=== PATIENT | male | born 1950 | race Caucasian/White ===

== ENCOUNTER → 2016-08-30 | Outpatient (CLI) | payer OTHER, MEDICARE ==
[~2016-08-30] MED LIST: ASPI81TA28 PO; ATOR10TA88 PO; FLM4 PO; LSN/10125 PO; MULT-506 PO
[2016-08-30 12:46] LABS: CHOLESTEROL/HDL RATIO 4.8
== END | disposition home or self-care (01) ==
LOC: C.LAB1850 10:15
PROVIDERS: ATTEND Internal Medicine
DX: E78.00 Pure hypercholesterolemia, unspecified (principal)

== ENCOUNTER → 2016-12-03 | Outpatient (CLI) | payer OTHER, MEDICARE ==
[~2016-12-03] MED LIST changes: +ATOR10TA82 PO; -ATOR10TA88 PO
[2016-12-03 09:48] LABS: CHOLESTEROL/HDL RATIO 3.8
== END | disposition home or self-care (01) ==
LOC: C.LAB1850 08:25
PROVIDERS: ATTEND Internal Medicine
DX: E78.00 Pure hypercholesterolemia, unspecified (principal)

== ENCOUNTER → 2017-07-25 | Outpatient (CLI) | payer OTHER, MEDICARE ==
[~2017-07-25] VITALS: Ht 175.3 cm; Wt 105.0 kg
[2017-07-25 14:27] VITALS: BP 134/80; PULSE 69; Ht 175.3 cm; Wt 105.0 kg
== END | disposition home or self-care (01) ==
LOC: C.NEUR 14:05
PROVIDERS: ATTEND Physician Assistant
DX: G47.33 Obstructive sleep apnea (adult) (pediatric) (principal)

== ENCOUNTER → 2017-10-16 | Outpatient (CLI) | payer OTHER, MEDICARE ==
--- NOTE | 2017-10-16 15:26 | DIAGNOSTIC IMAGING REPORT ---
CHEST 2 VIEWS ROUTINE CLINICAL HISTORY: 67 years-old Male presenting with R06.09 Dyspnea on [id number]. TECHNIQUE: PA and lateral views of the chest were obtained. COMPARISON: None. FINDINGS: Cardiomediastinal silhouette normal. Lungs and pleural spaces clear. Degenerative changes of the thoracic spine. Cholecystectomy clips noted. Radiodensity in the left axilla, possibly ballistic material. IMPRESSION: 1. No acute cardiopulmonary disease. Electronically signed by: Jesus Guerrero M.D. 10/16/2017 3:24 PM Dictated Date/Time: 10/16/2017 3:23 PM
== END | disposition home or self-care (01) ==
LOC: C.RAD1850 15:09
PROVIDERS: ATTEND Internal Medicine
DX: R06.09 Other forms of dyspnea (principal)

== ENCOUNTER → 2017-12-10 | Outpatient (CLI) | payer OTHER, MEDICARE ==
[2017-12-10 10:16] LABS: BLOOD UREA NITROGEN 13 mg/dl (7-18); CALCIUM 8.6 mg/dl (8.5-10.1); CARBON DIOXIDE 32 mmol/L (21-32); CREATININE 1.06 mg/dl (0.60-1.40); GLUCOSE 101 mg/dl (70-99); POTASSIUM 3.8 mmol/L (3.5-5.1); SODIUM 140 mmol/L (136-145)
[2017-12-10 10:19] LABS: ALT/SGPT 25 U/L (12-78); AST/SGOT 17 U/L (15-37); CHOLESTEROL 190 mg/dl (0-200); LDL CHOLESTEROL CALCULATED 95 mg/dl
== END | disposition home or self-care (01) ==
LOC: C.LAB1850 07:30
PROVIDERS: ATTEND Internal Medicine
DX: E78.00 Pure hypercholesterolemia, unspecified (principal); R73.9 Hyperglycemia, unspecified

== ENCOUNTER 2019-11-02 13:09 | Inpatient (IN) ==
[2019-11-02] MEDS ORDERED: PIPERACILLIN/TAZOBACTAM 4.5 GM/120 ML BAG IV ONE (13:32)
[2019-11-02] MEDS ORDERED: PIPERACILL/TAZOBAC CONSULT ACTIVE PRN (13:32)
[2019-11-02] MEDS ORDERED: SODIUM CHLORIDE 0.9% 1000ML 1,000 ML IV ONE (13:32)
--- NOTE | 2019-11-02 13:35 | Emergency Department Note ---
ED Provider Note NAME: ANNA PUENTE AGE: 69 SEX: M : 1950 ARRIVES VIA: Walk-In INFORMANT: [Patient] ED PROVIDER(S): [Scotty Agarwal MD] CHIEF COMPLAINT: Fever HISTORY OF PRESENT ILLNESS: The patient is a 69-year-old male who presents to the ER with complaints of fever, aches. The patient believes he has had flu/cold-like symptoms for about 2 weeks now. He was initially seen in this ED on the , 6 days ago. Work-up did not show any obvious source for infection. He was placed on Cipro and Flagyl for possible diverticulitis. He has taken this medication but it has made no improvement. He continues to have night sweats, a little bit of a cough, headache, fevers. He feels body aches and fatigue. No vomiting, no diar lori. The patient has not had recent travel. There have been no sick contacts except for a nephew who had some sort of cold recently. The patient went to his doctor's office today, he did have coronavirus testing sent off, the result is pending. He was ordered for laboratory work and then called and told to report to the ER as his white blood cell count had risen to around 24,000. The white count had been 18,000 just 6 days ago. Patient has not noticed any rash, there has been no recent dental cleaning. He has no urinary complaints. REVIEW OF SYSTEMS: See HPI for pertinent positives and negatives. A total of ten systems were reviewed and were otherwise negative. PMHx/PSHx: See Below SOCIAL HISTORY: See Below. PHYSICAL EXAM: GENERAL: Patient is in no acute distress. HEENT: No acute trauma, normocephalic atraumatic, mucous membranes moist, no nasal congestion, no scleral icterus. No throat erythema or exudate. NECK: No stridor, no adenopathy, no meningismus, trachea is midline. LUNGS: Clear to auscultation bilaterally, no wheeze, no rhonchi, breath sounds equal. HEART: Without murmurs gallops or rubs, mildly tachycardic, regular rhythm. ABDOMEN: Soft, nontender, bowel sounds positive, no hernias, no peritonitis. EXTREMITIES: No cyanosis or edema, full range of motion of all the joints without pain or difficulty, no signs for acute trauma. NEUROLOGIC: Oriented x 3, no acute motor or sensory deficits, no focal weakness. SKIN: No rash, no jaundice, no diaphoresis. DIFFERENTIAL DIAGNOSIS: Viral syndrome, otitis, pharyngitis, pneumonia, influenza, meningitis, urinary tract infection, sepsis, bacteremia, as well as other pathologies. EMERGENCY DEPARTMENT COURSE/PROCEDURES: ECG: There is a normal sinus rhythm with a rate of 91, no PVCs, no ST elevation, QTc is 445. Continuous Cardiac Monitoring: An order was placed for continuous cardiac monitoring. The monitor shows a rate of 92 with normal sinus rhythm. MEDICAL DECISION MAKING: There is a significant leukocytosis at 23,000, hemoglobin somewhat low at 12. Platelet count elevated at 547. There was a slight elevation to the INR at 1.3. No kidney failure, no significant electrolyte abnormality requiring correction. Lactic acid level was not elevated making sepsis less likely. Sed rate and CRP were both quite high. No liver enzyme elevation. Urinalysis did not show infection. Influenza testing was negative. Chest from did not show pneumonia or CHF. On exam, the patient had no abdominal discomfort. He was not toxic or febrile. No source for infection based on his exam. Patient received IV saline for hydration. He was given IV Zosyn as antibiotic coverage. The cause for the patient's fever and flulike symptoms is unclear. He does not meet criteria that would be concerning for coronavirus infection. Certainly, endocarditis is a consideration especially with the high sed rate and CRP. I do think a stay in the hospital is warranted. I did speak with case management, I talked to the patient about all his findings. The on-call hospitalist has been consulted. Impression & Plan Leukocytosis, Fever, Body aches, Night sweats Past Med/Surg History Medical History Enlarged prostate without lower urinary tract symptoms (luts) (Acute) GERD (gastroesophageal reflux disease) (Acute) Hypercholesterolemia (Acute) Hypertension (Acute) Obstructive sleep apnea (Acute) CPAP Osteoarthritis Surgical History Cornea transplant recipient RT/LEFT History of appendectomy History of arthroscopy LEFT KNEE History of cataract surgery RT/LEFT History of cholecystectomy History of colonoscopy History of prostate surgery TUNA PROCEDURE History of tooth extraction Hx of hemorrhoidectomy Family History Mother Myocardial infarction Grandfather (Maternal) Myocardial infarction Grandmother (Maternal) Diabetes Other Family history of ischemic heart disease before age 50 Denies family history of Colon cancer Ovarian cancer Prostate cancer Breast cancer Social History Preferred Language: [place] Communication Ability: Effective Visual Impairment: No Limitations Hearing Ability: Normal 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 Required: No Beliefs That Will Affect Care: None marital status: Current Living Situation: Spouse current occupational status: retired Other Information That Helps Us Care for You: No Feels Safe at Home: Yes Safety Concerns: Feels Safe At This Time Smoking Status: Former smoker Do You Dip or Chew Tobacco: No ; Smoking End Date: 1979 ; Second Hand Exposure: No ; Tobacco Cessation Education Requested by Patient: No Hx Alcohol Use: Yes Alcohol type: beer Alcohol Intake Frequency: Rarely Hx Substance Use: No Dental Care, Regularly: Yes Physical Activity Frequency: 1-2 Times per Week Seatbelt Use: always Sunscreen Use: No Results & Data Vital Signs Vital Signs - 24 hr 11/02/19 13:12 11/02/19 14:00 11/02/19 15:20 Temperature 36.7 C Temperature Source Oral Pulse Rate 113 H 86 Pulse Rate [Right Finger] 95 H 91 H Pulse Rhythm Regular Pulse Strength Normal Respiratory Rate 18 20 18 Respiratory Effort / Characteristics Non-Labored Spontaneous Non-Labored Non-Labored Respiratory Depth Normal Normal Normal Blood Pressure 135/82 Blood Pressure [Left Arm] 147/84 H 131/81 Blood Pressure Mean 99 Blood Pressure Mean [Left Arm] 105 97 Blood Pressure Position Sitting Pulse Oximetry 96 98 97 Oxygen Delivery Method Room Air Room Air Room Air Sepsis Recent Fever Within 48 Hours Yes Sepsis Action Taken by Nursing No Action Required 11/02/19 17:01 11/02/19 18:14 Temperature 37 C 36.9 C Temperature Source Oral Oral Pulse Rate 94 H Pulse Rate [Right Finger] 86 Pulse Rhythm Pulse Strength Respiratory Rate 18 16 Respiratory Effort / Characteristics Respiratory Depth Blood Pressure 141/99 H Blood Pressure [Left Arm] 132/71 Blood Pressure Mean Blood Pressure Mean [Left Arm] 91 Blood Pressure Position Pulse Oximetry 99 99 Oxygen Delivery Method Room Air Room Air Sepsis Recent Fever Within 48 Hours Sepsis Action Taken by [facility] Medications Current Medication List: was personally reviewed by me Laboratory Data Attestation: I reviewed the patient's lab results. Result diagrams: 11/02/19 13:51 11/02/19 13:51 Lab Results 11/02/19 11/02/19 11/02/19 Range/Units 13:51 13:51 13:51 WBC 23.56 H (4.8-10.8) K/uL RBC 4.38 L (4.7-6.1) M/uL Hgb 12.1 L (14.0-18.0) g/dL Hct 36.7 L (42-52) % MCV 83.8 (80-100) fL MCH 27.6 (25-34) pg MCHC 33.0 (32-36) g/dL RDW Std Deviation 45.4 (36.4-46.3) fL RDW Coeff of [place] 14.7 H (11.5-14.5) % Plt Count 547 H (130-400) K/uL MPV 8.9 (7.4-10.4) fL Immature Gran % (Auto) 3.1 % Neut % (Auto) 78.4 % Lymph % (Auto) 7.9 % [place] % (Auto) 8.4 % Eos % (Auto) 2.0 % Baso % (Auto) 0.2 % Immature Gran # (Auto) 0.73 H (0.00-0.02) K/uL Neut # (Auto) 18.44 H (1.4-6.5) K/uL Lymph # (Auto) 1.87 (1.2-3.4) K/uL [place] # (Auto) 1.99 H (0.11-0.59) K/uL Eos # (Auto) 0.48 (0-0.5) K/uL Baso # (Auto) 0.05 (0-0.2) K/uL ESR > 90 H (0-14) mm/hr PT 13.9 H (9.0-12.0) Seconds INR 1.3 H (0.9-1.1) APTT 30.9 (21.0-31.0) Seconds PTT Ratio 1.1 Sodium (136-145) mmol/L Potassium (3.5-5.1) mmol/L Chloride (98-107) mmol/L Carbon Dioxide (21-32) mmol/L Anion Gap (3-11) BUN (7-18) mg/dl Creatinine (0.6-1.4) mg/dl Est Cr Clr Drug Dosing ml/min Est GFR ( Amer) Est GFR (Non-Af Amer) BUN/Creatinine Ratio (10-20) Glucose (70-99) mg/dl Lactate (0.4-2.0) mmol/L Calcium (8.5-10.1) mg/dl Magnesium (1.8-2.4) mg/dl Total Bilirubin (0.2-1) mg/dl AST (15-37) U/L ALT (12-78) U/L Alkaline Phosphatase (45-117) U/L C-Reactive Protein (0-0.29) mg/dl Total Protein (6.4-8.2) gm/dl Albumin (3.4-5.0) gm/dl Globulin (2.5-4.0) gm/dl Albumin/Globulin Ratio (0.9-2) Procalcitonin (0-0.5) ng/ml Urine Color Urine Appearance (Clear) Urine pH (4.5-7.5) Ur Specific [place] (1.000-1.030) Urine Protein (Negative) Urine Glucose (UA) (Negative) Urine Ketones (Negative) Urine Blood (Negative) Urine Nitrite (Negative) Urine Bilirubin (Negative) Urine Urobilinogen (Negative) Ur Leukocyte Esterase (Negative) Hepatitis C Ab Screen (Neg) Influenza Type A (PCR) (Neg) Influenza Type B (PCR) (Neg) 11/02/19 11/02/19 11/02/19 Range/Units 13:51 13:51 13:51 WBC (4.8-10.8) K/uL RBC (4.7-6.1) M/uL Hgb (14.0-18.0) g/dL Hct (42-52) % MCV (80-100) fL MCH (25-34) pg MCHC (32-36) g/dL RDW Std Deviation (36.4-46.3) fL RDW Coeff of [place] (11.5-14.5) % Plt Count (130-400) K/uL MPV (7.4-10.4) fL Immature Gran % (Auto) % Neut % (Auto) % Lymph % (Auto) % [place] % (Auto) % Eos % (Auto) % Baso % (Auto) % Immature Gran # (Auto) (0.00-0.02) K/uL Neut # (Auto) (1.4-6.5) K/uL Lymph # (Auto) (1.2-3.4) K/uL [place] # (Auto) (0.11-0.59) K/uL Eos # (Auto) (0-0.5) K/uL Baso # (Auto) (0-0.2) K/uL ESR (0-14) mm/hr PT (9.0-12.0) Seconds INR (0.9-1.1) APTT (21.0-31.0) Seconds PTT Ratio Sodium 137 (136-145) mmol/L Potassium 3.2 L (3.5-5.1) mmol/L Chloride 102 (98-107) mmol/L Carbon Dioxide 27 (21-32) mmol/L Anion Gap 8.0 (3-11) BUN 12 (7-18) mg/dl Creatinine 0.87 (0.6-1.4) mg/dl Est Cr Clr Drug Dosing 93.8 ml/min Est GFR ( Amer) 102.8 Est GFR (Non-Af Amer) 88.7 BUN/Creatinine Ratio 13.5 (10-20) Glucose 112 H (70-99) mg/dl Lactate 1.8 (0.4-2.0) mmol/L Calcium 8.5 (8.5-10.1) mg/dl Magnesium 2.1 (1.8-2.4) mg/dl Total Bilirubin 0.3 (0.2-1) mg/dl AST 24 (15-37) U/L ALT 39 (12-78) U/L Alkaline Phosphatase 105 (45-117) U/L C-Reactive Protein 17.80 H (0-0.29) mg/dl Total Protein 7.4 (6.4-8.2) gm/dl Albumin 2.1 L (3.4-5.0) gm/dl Globulin 5.3 H (2.5-4.0) gm/dl Albumin/Globulin Ratio 0.4 L (0.9-2) Procalcitonin 0.15 (0-0.5) ng/ml Urine Color Urine Appearance (Clear) Urine pH (4.5-7.5) Ur Specific [place] (1.000-1.030) Urine Protein (Negative) Urine Glucose (UA) (Negative) Urine Ketones (Negative) Urine Blood (Negative) Urine Nitrite (Negative) Urine Bilirubin (Negative) Urine Urobilinogen (Negative) Ur Leukocyte Esterase (Negative) Hepatitis C Ab Screen (Neg) Influenza Type A (PCR) (Neg) Influenza Type B (PCR) (Neg) 11/02/19 11/02/19 11/02/19 Range/Units 13:51 14:00 15:43 WBC (4.8-10.8) K/uL RBC (4.7-6.1) M/uL Hgb (14.0-18.0) g/dL Hct (42-52) % MCV (80-100) fL MCH (25-34) pg MCHC (32-36) g/dL RDW Std Deviation (36.4-46.3) fL RDW Coeff of [place] (11.5-14.5) % Plt Count (130-400) K/uL MPV (7.4-10.4) fL Immature Gran % (Auto) % Neut % (Auto) % Lymph % (Auto) % [place] % (Auto) % Eos % (Auto) % Baso % (Auto) % Immature Gran # (Auto) (0.00-0.02) K/uL Neut # (Auto) (1.4-6.5) K/uL Lymph # (Auto) (1.2-3.4) K/uL [place] # (Auto) (0.11-0.59) K/uL Eos # (Auto) (0-0.5) K/uL Baso # (Auto) (0-0.2) K/uL ESR (0-14) mm/hr PT (9.0-12.0) Seconds INR (0.9-1.1) APTT (21.0-31.0) Seconds PTT Ratio Sodium (136-145) mmol/L Potassium (3.5-5.1) mmol/L Chloride (98-107) mmol/L Carbon Dioxide (21-32) mmol/L Anion Gap (3-11) BUN (7-18) mg/dl Creatinine (0.6-1.4) mg/dl Est Cr Clr Drug Dosing ml/min Est GFR ( Amer) Est GFR (Non-Af Amer) BUN/Creatinine Ratio (10-20) Glucose (70-99) mg/dl Lactate (0.4-2.0) mmol/L Calcium (8.5-10.1) mg/dl Magnesium (1.8-2.4) mg/dl Total Bilirubin (0.2-1) mg/dl AST (15-37) U/L ALT (12-78) U/L Alkaline Phosphatase (45-117) U/L C-Reactive Protein (0-0.29) mg/dl Total Protein (6.4-8.2) gm/dl Albumin (3.4-5.0) gm/dl Globulin (2.5-4.0) gm/dl Albumin/Globulin Ratio (0.9-2) Procalcitonin (0-0.5) ng/ml Urine Color Yellow Urine Appearance Clear (Clear) Urine pH 6.5 (4.5-7.5) Ur Specific [place] 1.010 (1.000-1.030) Urine Protein Negative (Negative) Urine Glucose (UA) Negative (Negative) Urine Ketones Negative (Negative) Urine Blood Negative (Negative) Urine Nitrite Negative (Negative) Urine Bilirubin Negative (Negative) Urine Urobilinogen Negative (Negative) Ur Leukocyte Esterase Negative (Negative) Hepatitis C Ab Screen Neg (Neg) Influenza Type A (PCR) Neg for Influ A (Neg) Influenza Type B (PCR) Neg for Influ B (Neg) Administered Medications Discontinued Medications Sodium Chloride (Nss 1000ml) 1,000 mls @ 999 mls/hr IV .[id number] ONE Stop: 11/02/19 14:32 Last Infusion: 11/02/19 15:19 Dose: 0 mls/hr Documented by: [id number] Admin: 11/02/19 14:07 Dose: 999 mls/hr Documented by: [id number] Piperacillin Sod/Tazobactam Sod (Zosyn) 4.5 gm in 120 mls @ 240 mls/hr IV NOW ONE Stop: 11/02/19 14:01 Last Infusion: 11/02/19 14:55 Dose: 0 mls/hr Documented by: [id number] Admin: 11/02/19 14:07 Dose: 240 mls/hr Documented by: [id number] Imaging Data Radiologist's Impression: XR chest 1V portable CLINICAL HISTORY: SEPSIS COMPARISON STUDY: 10/27/2019 FINDINGS: The cardiac and mediastinal contours are normal. There is no evidence of focal pulmonary consolidation. There is no evidence of failure. No pleural effusions are visualized.[There is a stable calcification/foreign body projected over the left axilla. IMPRESSION: No active disease in the chest. Blood Pressure Blood Pressure Findings: Elevated blood pressure Blood Pressure Disposition: further management by hospitalist Discharge Plan Visit Data Chief Complaint: Fever Stated Complaint: FEVER,WHITE COUNT REALLY HIGH ED Provider: Scotty Agarwal Discharge Problem: Leukocytosis, Fever, Body aches, Night sweats Patient Disposition: Being Evaluated by Hospitalist Condition: Good Discharge Instructions Interventions: ED Discharge Assessment Last Done: 11/02/19 18:14 Discharge Problem: Leukocytosis Qualifiers: Leukocytosis type: unspecified Qualified Code(s): D72.829 - Elevated white blood cell count, unspecified Fever Qualifiers: Fever type: unspecified Qualified Code(s): R50.9 - Fever, unspecified
[2019-11-02 14:09] LABS: Basophils # (auto) 0.05 K/uL (0-0.2); Basophils % (auto) 0.2 %; Eosinophils # (auto) 0.48 K/uL (0-0.5); Hematocrit (blood only) 36.7 % (42-52); Hemoglobin 12.1 g/dL (14.0-18.0); Immature Granulocytes # (auto) 0.73 K/uL (0.00-0.02); Immature Granulocytes % (auto) 3.1 %; Lymphocytes # (auto) 1.87 K/uL (1.2-3.4); Lymphocytes % (auto) 7.9 %; Mean Corpuscular Hemoglobin 27.6 pg (25-34); Mean Corpuscular Volume 83.8 fL (80-100); Mean Platelet Volume 8.9 fL (7.4-10.4); Monocytes # (auto) 1.99 K/uL (0.11-0.59); Monocytes % (auto) 8.4 %; Neutrophils # (auto) 18.44 K/uL (1.4-6.5); Neutrophils % (auto) 78.4 %; Platelet Count 547 K/uL (130-400); RDW Coefficient of Variation 14.7 % (11.5-14.5); RDW Standard Deviation 45.4 fL (36.4-46.3); Red Blood Count 4.38 M/uL (4.7-6.1); White Blood Count 23.56 K/uL (4.8-10.8)
[2019-11-02 14:22] LABS: Albumin Level 2.1 gm/dl (3.4-5.0); BUN Creatinine Ratio 13.5 (10-20); Calcium 8.5 mg/dl (8.5-10.1); Creatinine Clr Calc Pharmacy 93.8 ml/min; Est GFR (African American) 102.8; Est GFR (Non-African American) 88.7; INR 1.3 (0.9-1.1); Magnesium 2.1 mg/dl (1.8-2.4); Partial Thromboplastin Ratio 1.1; Partial Thromboplastin Time 30.9 Seconds (21.0-31.0); Potassium 3.2 mmol/L (3.5-5.1); Prothrombin Time 13.9 Seconds (9.0-12.0)
--- NOTE | 2019-11-02 14:23 | XRay Report ---
XR chest 1V portable CLINICAL HISTORY: SEPSIS COMPARISON STUDY: 10/27/2019 FINDINGS: The cardiac and mediastinal contours are normal. There is no evidence of focal pulmonary co nsolidation. There is no evidence of failure. No pleural effusions are visualized.[There is a stable calcification/foreign body projected over the left axilla. IMPRESSION: No active disease in the chest. ACT 112: Negative or not required by law. Electronically signed by: Jeremy Galdamez M.D. 11/02/2019 2:21 PM
[2019-11-02 14:24] LABS: Albumin Globulin Ratio 0.4 (0.9-2); Bilirubin,Total 0.3 mg/dl (0.2-1); C Reactive Protein 17.8 mg/dl (0-0.29); Globulin 5.3 gm/dl (2.5-4.0); Total Protein 7.4 gm/dl (6.4-8.2)
[2019-11-02 14:58] LABS: Influenza A virus by PCR Neg for Influ A (Neg); Influenza B virus by PCR Neg for Influ B (Neg)
--- NOTE | 2019-11-02 15:57 | History & Physical Report ---
Date of Service November 02, 2019 Assessment & Plan (1) Fever of unknown origin: Possible infection, unclear of any source. Procalcitonin negative x2 leans away from active infection. Concerned about lymphoma/leukemia, especially in light of symptomatology such as night sweats and weight loss. Patient was given a single dose of Zosyn emergency room, will hold off as we are unclear of any infection. We will ask infectious disease to evaluate for further recommendations. For now, will check CBC with manual differential. Patient was tested for coronavirus as an outpatient, will need to be in droplet isolation until these results can be obtained. Consider hematology consultation. Can treat symptoms with Tylenol empirically. Okay to encourage p.o. (2) GERD (gastroesophageal reflux disease): Continue omeprazole as ordered. (3) Hypercholesterolemia: Patient is on pravastatin 10 mg daily, will continue. (4) Hypertension: Blood pressure remained stable on current medications, continue lisinopril hydrochlorothiazide as ordered. (5) Obstructive sleep apnea: Will order CPAP nightly as per outpatient regimen. History of Present Illness Primary Care Provider: Alexis Lang MD This is a 69-year-old male with past medical history of BPH, GERD, hypercholesterolemia, and hypertension that presents today complaining of leukocytosis. Patient is seen with family and and all are good historians. Patient notes that his symptoms started around 10/17. Allergies were very nonspecific, with some general myalgias well with headache. He has had some poor appetite although he has had no overt nausea or vomiting. He did also notice subjective fevers. He does note significant night sweats as well which have progressed over the course of his illness. Patient was seen by his primary care physician on 10/26. At that time he was found to be negative for influenza. Patient went up in the emergency room later that day and had full work-up that included CT of the chest and abdomen as well as blood cultures. At that time, no significant findings were noted. There is a question of possible very early diverticulitis and the patient was discharged from the ER at that time with Cipro and metronidazole p.o. to take at home. Patient states that he continued to have symptoms and there is no change with the antibiotics. He also felt the symptoms were worsening and went to see his primary care physician earlier today. Patient was sent for a CBC along with a COVID-19 test. He was later contacted by his PCP and told to head to the emergency room as his white count was 24. Labs rechecked in emergency room and in fact he does have a significant leukocytosis. Patient continues to have symptoms that are mostly myalgias on the back and the lower abdomen. He has a mild headache. He does note that he h ad a fever of 101 at home. notes that the patient has been taking little in the way of diet is lost approximately 10 pounds since the beginning of the month. Patient denies any cough and does not appear to be in any cardiopulmonary distress. Allergies Allergy/AdvReac Type Severity Reaction Status Date / Time No Known Allergies Allergy Verified 11/02/19 14:24 Home Medications Home Medications Medication Instructions Recorded Confirmed Type multivitamin 1 tab PO QAM 06/22/19 11/02/19 History famotidine 20 mg tablet 20 mg PO BID 42 Days #84 tab 06/24/19 11/02/19 Rx pravastatin 10 mg PO HS 07/13/19 11/02/19 History CPAP Machine #1 ea 07/30/19 11/02/19 Rx Unknown Eye Drop 1 drp OPB QAM 10/27/19 11/02/19 History acetaminophen [Tylenol Extra 1,000 mg PO Q8 PRN 10/27/19 11/02/19 History Strength] ciprofloxacin HCl [Cipro] 500 mg PO BID 10 Days #20 tab 10/27/19 11/02/19 Rx lisinopril-hydrochlorothiazide 1 tab PO QAM 10/27/19 11/02/19 History metronidazole 500 mg PO Q8H 10 Days #30 tab 10/27/19 11/02/19 Rx ibuprofen 200 mg PO Q6H PRN 11/02/19 11/02/19 History meloxicam 15 mg PO QAM 11/02/19 11/02/19 History omeprazole 40 mg PO QAM 11/02/19 11/02/19 History Past Med/Surg History Social History Preferred Language: Salvadorean Communication Ability: Effective Visual Impairment: No Limitations Hearing Ability: Normal Inter Com Servicer Required: No Beliefs That Will Affect Care: None marital status: Current Living Situation: Spouse current occupational status: retired Other Information That Helps Us Care for You: No Feels Safe at Home: Yes Safety Concerns: Feels Safe At This Time Smoking Status: Former smoker Do You Dip or Chew Tobacco: No ; Smoking End Date: 1979 ; Second Hand Exposure: No ; Tobacco Cessation Education Requested by Patient: No Hx Alcohol Use: Yes Alcohol type: beer Alcohol Intake Frequency: Rarely Hx Substance Use: No Dental Care, Regularly: Yes Physical Activity Frequency: 1-2 Times per Week Seatbelt Use: always Sunscreen Use: No Review of Systems Constitutional: + fever, + chills, + sweats, + body aches, + fatigue, + malaise, + weakness, + anorexia and + weight loss; no weight gain Eyes: as per Subjective / HPI Respiratory: no cough, no chest congestion, no dyspnea, no dyspnea on exertion, no hemoptysis and no wheezing Cardiovascular: no chest pain, no orthopnea, no paroxysmal nocturnal dyspnea, no palpitations, no lightheadedness, no syncope and no edema Gastrointestinal: no abdominal pain, no nausea, no vomiting, no change in bowel habits, no constipation and no diarrhea/loose stools Genitourinary: no dysuria, no difficulty urinating, no urinary frequency, no urinary hesitancy and no urinary incontinence Musculoskeletal: + back pain, + neck pain, + joint pain and + stiffness; no myalgia Integumentary: no rash Neurologic: no gait abnormality, no unsteadiness, no falls and no generalized weakness Endocrine: no polydipsia and no polyphagia Hematologic / Lymphatic: + night sweats; no easy bleeding Physical Exam Constitutional: well nourished and cooperative; no acute distress Neck: trachea midline, no thyromegaly Respiratory: normal respiratory effort Auscultation: lungs clear to auscultation bilaterally; no crackles, no rales, no rhonchi and no wheezes Cardiovascular: Rate/Rhythm: regular rate and regular rhythm Heart Sounds: normal S1 and normal S2 Vessels: no JVD and no carotid bruit Extremities: no pedal edema Gastrointestinal (Abdomen): Inspection/Auscultation: abdomen normal to inspection Percussion/Palpation: abdomen soft; abdomen nontender, no guarding, abdomen not rigid, no hepatosplenomegaly, no hepatomegaly and no splenomegaly Musculoskeletal: no cyanosis or clubbing, extremities motor strength 5/5 Skin: no rashes, warm and dry Lymphatic: no lymphedema Results & Data Vital Signs (Past 12 Hours) Vital Signs Temp Pulse Pulse Resp BP BP Pulse Ox 11/02/19 15:20 91 H 18 131/81 97 11/02/19 14:00 86 95 H 20 147/84 H 98 11/02/19 13:12 36.7 C 113 H 18 135/82 96 Laboratory Results WBCs of 23.5, hemoglobin of 12.1, hematocrit 36.7, platelets 547. Visual count is 18.44, lymphocytes is 1.87, and monocytes 1.99. Sed rate is over 90. INR is 1.3. Sodium is 137, potassium 3.2, chloride 102, CO2 of 27, BUN of 12 creatinine of 0.87 which is his baseline. Glucose of 112. Lactate is 1.8. LFTs are normal. C-reactive protein is 17.8. Procalcitonin was 0.35 on 10/26 and is down to 0.15 on 11/01. Patient tested negative for influenza a and B on 10/26 as well as 11/01. Lyme IgM and IgG were -10/26. UA on 10/26 was also unremarkable. Diagnostic Findings XR chest 1V portable CLINICAL HISTORY: SEPSIS COMPARISON STUDY: 10/27/2019 FINDINGS: The cardiac and mediastinal contours are normal. There is no evidence of focal pulmonary consolidation. There is no evidence of failure. No pleural effusions are visualized.[There is a stable calcification/foreign body projected over the left axilla. IMPRESSION: No active disease in the chest. ---- CT abd pelvis wo con CLINICAL HISTORY: 69 years-old Male presenting with LLQ abdominal pain, fever. TECHNIQUE: Multidetector CT of the abdomen and pelvis was performed without the use of intravenous contrast. IV contrast: None. One or more dose lowering techniques were used consistent with the principles of ALARA (as low as reasonably achievable), including automatic exposure control, mA or kV adjustment to individual patient size, and/or use of iterative reconstruction. COMPARISON: None. CT DOSE (mGy.cm): The estimated cumulative dose is 1113.18 mGy.cm. FINDINGS: Track Template Maker topogram: Surgical clip projects over the right lower quadrant. Urinary bladder partially opacified with contrast. Lung bases: Normal heart size. No pericardial or pleural effusion. Bronchial wall thickening may be present. Minimal dependent changes likely atelectasis. Liver: Normal morphology. Normal density. Biliary: No gross biliary ductal dilatation allowing for noncontrast technique. Gallbladder surgically absent. Pancreas: Mild parenchymal atrophy. Spleen: Normal noncontrast appearance. Adrenal glands: Normal noncontrast appearance. Kidneys and ureters: Excreted contrast noted in the urinary collecting systems. Multiple parapelvic or peripelvic cysts noted bilaterally. Moderate bilateral perinephric fat infiltration, nonspecific. Allowing for the degree of urinary collecting system opacification, no gross evidence of renal calculi. Ureters nondistended. Bladder: Incompletely evaluated secondary to underdistention. Pelvic organs: Prostate and seminal vesicles normal. Bowel: Diverticulosis of the mid to distal sigmoid colon without wall thickening or pericolonic inflammatory change. Fluid noted in the right colon. Postsurgical changes of appendectomy. No bowel obstruction. Small duodenal diverticulum at the level of the pancreatic head suspected. Peritoneal cavity: No free fluid or intraperitoneal gas. Lymph nodes: No gross lymphadenopathy allowing for noncontrast technique. Vasculature: Atherosclerosis of the normal caliber abdominal aorta. Abdominal wall: Small bilateral fat-containing inguinal hernias suspected. Musculoskeletal: Degenerative changes of the spine and sacroiliac joints. IMPRESSION: 1. Diverticulosis coli. No diverticulitis. 2. Allowing for noncontrast technique, no acute intra-abdominal pathology. 3. Small bilateral fat-containing inguinal hernias suspected. --- CT angio chest PE protocol CLINICAL HISTORY: 69 years-old Male presenting with dyspnea, cough, tachycardia, clinical concern for pulmonary embolism. TECHNIQUE: Multidetector CT angiography of the chest was performed after administration of intravenous contrast. 3-D volumetric and/or maximum intensity projection (MIP) images were subsequently reconstructed for review. IV contrast: 116 mL of Optiray 320. One or more dose lowering techniques were used consistent with the principles of ALARA (as low as reasonably achievable), including automatic exposure control, mA or kV adjustment to individual patient size, and/or use of iterative reconstruction. COMPARISON: Chest x-ray performed earlier today. CT DOSE (mGy.cm): The estimated cumulative dose is 704.61 mGy.cm. FINDINGS: Track Template Maker topogram: Unremarkable. Pulmonary vasculature: The study is suboptimal for the assessment of the pulmonary vascular tree secondary to respiratory motion artifact. Allowing for limited image quality, no central filling defect to suggest pulmonary embolus. Main pulmonary artery is not enlarged. No flattening of the interventricular septum. No intracardiac filling defect. No reflux of contrast into the hepatic veins. Remaining chest: Soft tissues: Normal thyroid and thoracic inlet. Small nonspecific hilar lymph nodes likely reactive. No axillary, supraclavicular, mediastinal, or hilar lymphadenopathy. Normal aorta. Normal heart size. No pericardial or pleural effusion. Circumferential wall thickening of the mid to distal esophagus to a mild degree with a possible trace hiatal hernia. Lungs and airways: No pneumothorax. Central airways patent. Pulmonary arteries are not significantly enlarged relative to adjacent bronchi. No interlobular septal thickening. Minimal dependent changes likely atelectasis. Musculoskeletal: Degenerative changes of the spine. IMPRESSION: 1. Allowing for suboptimal image quality, no evidence of pulmonary embolus. No acute intrathoracic pathology. 2. Mild mid to distal esophageal wall thickening may suggest esophagitis. PG Care Time/CCT Total # of Minutes Spent Total Time Spent with Patient: Total time spent is greater than 50% in coordination of care (as documented) at patient's floor/unit and/or counseling patient: Coding Level of Care Code 50800 Initial Inpt Care Lvl 3 Diagnoses Fever of unknown origin R50.9 GERD (gastroesophageal reflux disease) K21.9 Hypercholesterolemia E78.00 Hypertension I10 Obstructive sleep apnea G47.33
[2019-11-02 16:10] LABS: Appearance Urine Clear (Clear); Bilirubin Urine Negative (Negative); Blood Urine Negative (Negative); Color Urine Yellow; Glucose Urine UA Negative (Negative); Ketones Urine Negative (Negative); Leukocyte Esterase Urine Negative (Negative); Nitrite Urine Negative (Negative); Protein Urine Negative (Negative); Urobilinogen Urine Negative (Negative); pH Urine 6.5 (4.5-7.5)
[2019-11-02] MEDS ORDERED: IBUPROFEN 200 MG TAB PO PRN (18:47)
[2019-11-02] MEDS ORDERED: ONDANSETRON INJ 2 MG/ML 2 ML VIAL IV PRN (18:47)
[2019-11-02] MEDS ORDERED: ZOLPIDEM TARTRATE 5 MG TAB PO PRN (18:47)
[2019-11-02] MEDS ORDERED: ACETAMINOPHEN 325 MG TAB PO PRN (18:47)
[2019-11-02 20:02] LABS: Basophils # (auto) 0.05 K/uL (0-0.2); Basophils % (auto) 0.2 %; Eosinophils # (auto) 0.54 K/uL (0-0.5); Eosinophils % (auto) 2.4 %; Hematocrit (blood only) 35.9 % (42-52); Hemoglobin 11.8 g/dL (14.0-18.0); Immature Granulocytes # (auto) 0.56 K/uL (0.00-0.02); Immature Granulocytes % (auto) 2.5 %; Lymphocytes # (auto) 2.01 K/uL (1.2-3.4); Lymphocytes % (auto) 8.9 %; Mean Corpuscular Hemoglobin 27.6 pg (25-34); Mean Corpuscular Hgb Conc 32.9 g/dL (32-36); Mean Corpuscular Volume 84.1 fL (80-100); Monocytes % (auto) 6.7 %; Neutrophils # (auto) 17.86 K/uL (1.4-6.5); Neutrophils % (auto) 79.3 %; Platelet Count 531 K/uL (130-400); RDW Coefficient of Variation 14.9 % (11.5-14.5); Red Blood Count 4.27 M/uL (4.7-6.1); White Blood Count 22.52 K/uL (4.8-10.8)
[2019-11-02] MEDS: FAMOTIDINE 20 MG TAB PO SCH (20:43)
[2019-11-02] MEDS: PRAVASTATIN SOD 10 MG TAB PO SCH (20:43)
--- NOTE | 2019-11-03 06:14 | Electrocardiogram Report ---
Test Reason : Blood Pressure : / mmHG Vent. Rate : 091 BPM Atrial Rate : 091 BPM P-R Int : 180 ms QRS Dur : 082 ms QT Int : 362 ms P-R-T Axes : 044 007 007 degrees QTc Int : 445 ms Normal sinus rhythm Normal ECG When compared with ECG of 27-OCT-2019 20:09, No significant change was found Confirmed by Harjeet Roca ([id number]) on 11/03/2019 6:14:06 AM Referred By: Alexis Lang Confirmed By:Harjeet Roca
[2019-11-03] MEDS ORDERED: POTASSIUM CHLORIDE 20 MEQ TABCR PO STA (07:44)
[2019-11-03] MEDS: MULTIVITAMIN TAB PO SCH (08:03)
[2019-11-03] MEDS: FAMOTIDINE 20 MG TAB PO SCH ×2 (08:03→20:06)
[2019-11-03] MEDS: LISINOPRIL/HCTZ 10/12.5MG TAB PO SCH (08:03)
[2019-11-03] MEDS: MELOXICAM 7.5 MG TAB PO SCH (08:04)
[2019-11-03] MEDS: PANTOprazole 40 MG TAB PO SCH (08:06)
[2019-11-03] MEDS ORDERED: PIPERACILLIN/TAZOBACTAM 3.375 GM in DEXTROSE 5% 100 ML IV ONE (09:00)
[2019-11-03 09:01] LABS: BUN Creatinine Ratio 15.1 (10-20); Calcium 8.7 mg/dl (8.5-10.1); Creatinine Clr Calc Pharmacy 115.3 ml/min; Est GFR (African American) 111.1; Est GFR (Non-African American) 95.9; Magnesium 1.9 mg/dl (1.8-2.4); Potassium 3.7 mmol/L (3.5-5.1)
[2019-11-03 12:32] LABS: Adenovirus PCR Not Detected (NotDetected); Bordetella parapertussis PCR Not Detected (NotDetected); Bordetella pertussis PCR Not Detected (NotDetected); Chlamydia pneumoniae PCR Not Detected (NotDetected); Coronavirus 229E PCR Not Detected (NotDetected); Coronavirus HKU1 PCR Not Detected (NotDetected); Coronavirus NL63 PCR Not Detected (NotDetected); Coronavirus OC43PCR Not Detected (NotDetected); Human Metapneumovirus PCR Not Detected (NotDetected); Influenza A PCR Not Detected (NotDetected); Influenza B PCR Not Detected (NotDetected); Parainfluenza Virus 1 PCR Not Detected (NotDetected); Parainfluenza Virus 2 PCR Not Detected (NotDetected); Parainfluenza Virus 3 PCR Not Detected (NotDetected); Parainfluenza Virus 4 PCR Not Detected (NotDetected); Respiratory Syncytial VirusPCR Not Detected (NotDetected); Rhinovirus/Enterovirus PCR Not Detected (NotDetected)
[2019-11-03 12:33] LABS: Mycoplasma pneumoniae PCR Not Detected (NotDetected)
[2019-11-03] MEDS: LACTOBACILLUS ACIDOPHILUS (FLORANEX) TAB PO SCH ×2 (13:07→16:57)
--- NOTE | 2019-11-03 13:19 | Infectious Disease Consult ---
Date of Consultation November 03, 2019 Assessment & Plan (1) Leukocytosis: no clear infectious etiology, doubt COVID-19 but await testing results, maintain isolation pending this. can follow off of abx. follow blood cultures. heme/onc eval. History of Present Illness Attending Physician: Jourdan Rodriges DO pt admitted due to abnormal outpatient lab revealing elevated wbc. He states he has had ongoing fevers ranging from 99 to 102 at home for several weeks. has been to pcp multiple times and to ER on 10/26 for additional workup. In ER on 10/26 ct abd done, negative, he had blood cultures at the time but were negative. sent home on cipro and sawyer for ? early diverticulitis. he is having no gi symptoms. denies abd pain, no n/v/d. no gu symptoms. states he had colonoscopy in 07/2019 and was negative. wbc at that time was 19. tmax since admission 37.7, wbc in ER 24, 22 today. Procalcitonin negative. UA negative, flu swab negative, cxr negative. denies cp, sob, cough, walsh. no travel, no sick contacts, no fatigue, + SHERLEY with wt loss. 11/01 blood cultures pending. no sore throat, no UNGER, pt started on emperic zosyn, tolerating well. no compalints on my exam. as part of his outpatient workup last week, he was tested for COVID-19, results pending, on airborne isolation pending this results. [facility] consulted as well. Allergies Allergy/AdvReac Type Severity Reaction Status Date / Time No Known Allergies Allergy Verified 11/02/19 14:24 Home Medications Home Medications Medication Instructions Recorded Confirmed Type multivitamin 1 tab PO QAM 06/22/19 11/02/19 History famotidine 20 mg tablet 20 mg PO BID 42 Days #84 tab 06/24/19 11/02/19 Rx pravastatin 10 mg PO HS 07/13/19 11/02/19 History CPAP Machine #1 ea 07/30/19 11/02/19 Rx Unknown Eye Drop 1 drp OPB QAM 10/27/19 11/02/19 History acetaminophen [Tylenol Extra 1,000 mg PO Q8 PRN 10/27/19 11/02/19 History Strength] ciprofloxacin HCl [Cipro] 500 mg PO BID 10 Days #20 tab 10/27/19 11/02/19 Rx lisinopril-hydrochlorothiazide 1 tab PO QAM 10/27/19 11/02/19 History metronidazole 500 mg PO Q8H 10 Days #30 tab 10/27/19 11/02/19 Rx ibuprofen 200 mg PO Q6H PRN 11/02/19 11/02/19 History meloxicam 15 mg PO QAM 11/02/19 11/02/19 History omeprazole 40 mg PO QAM 11/02/19 11/02/19 History Patient History Medical History Enlarged prostate without lower urinary tract symptoms (luts) (Acute) GERD (gastroesophageal reflux disease) (Acute) Hypercholesterolemia (Acute) Hypertension (Acute) Obstructive sleep apnea (Acute) CPAP Osteoarthritis Surgical History Cornea transplant recipient RT/LEFT History of appendectomy History of arthroscopy LEFT KNEE History of cataract surgery RT/LEFT History of cholecystectomy History of colonoscopy History of prostate surgery TUNA PROCEDURE History of tooth extraction Hx of hemorrhoidectomy Family History Mother Myocardial infarction Grandfather (Maternal) Myocardial infarction Grandmother (Maternal) Diabetes Other Family history of ischemic heart disease before age 50 Denies family history of Colon cancer Ovarian cancer Prostate cancer Breast cancer Social History Preferred Language: Honduran Communication Ability: Effective Visual Impairment: No Limitations Hearing Ability: Normal Operations Management Trainee Required: No Beliefs That Will Affect Care: None marital status: Current Living Situation: Spouse current occupational status: retired Other Information That Helps Us Care for You: No Feels Safe at Home: Yes Safety Concerns: Feels Safe At This Time Smoking Status: Former smoker Do You Dip or Chew Tobacco: No ; Smoking End Date: 1979 ; Second Hand Exposure: No ; Tobacco Cessation Education Requested by Patient: No Hx Alcohol Use: Yes Alcohol type: beer Alcohol Intake Frequency: Rarely Hx Substance Use: No Dental Care, Regularly: Yes Physical Activity Frequency: 1-2 Times per Week Seatbelt Use: always Sunscreen Use: No Review of Systems Review of Systems: All systems reviewed & are unremarkable except as noted in HPI & below Physical Exam Constitutional: WD/WN, vitals as above Eyes: PERRL, conjunctivae normal, anicteric sclerae ENMT: external ear and nose normal, oropharynx normal Neck: normal visual inspection Respiratory: normal respiratory effort, lungs clear to auscultation Cardiovascular: RRR, no murmur, no edema Gastrointestinal (Abdomen): normal bowel sounds, soft, nontender, no he patosplenomegaly Musculoskeletal: no cyanosis or clubbing, extremities motor strength 5/5 Skin: no rashes, warm and dry Psychiatric: A+Ox3, euthymic affect Results & Data ([facility]) Vital Signs (Past 12 Hours) Vital Signs Temp Pulse Resp BP Pulse Ox 11/03/19 10:20 37.3 C 87 20 125/76 95 11/03/19 06:07 37.6 C H 93 H 18 133/81 95 PG Care Time/CCT Total # of Minutes Spent Total Time Spent with Patient: Total time spent is greater than 50% in coordination of care (as documented) at patient's floor/unit and/or counseling patient: Coding Level of Care Code 45344 Inpt Consult Level 4 Diagnoses Leukocytosis D72.829 Leukocytosis type: unspecified (1) Leukocytosis Leukocytosis type: unspecified Qualified Code(s): D72.829 - Elevated white blood cell count, unspecified
[2019-11-03] MEDS ORDERED: PIPERACILLIN/TAZOBACTAM 3.375 GM in DEXTROSE 5% 100 ML IV SCH (14:00)
--- NOTE | 2019-11-03 17:19 | Hospitalist Progress Note ---
Date of Service November 03, 2019 Assessment & Plan (1) Fever of unknown origin: etiology not entirely certain - workup/observation in progress -bacterial seems unlikely with nondescript CT chest/abd/pelvis last week and clear CXR yesterday, negative blood cultures last week and no growth to date from yesterday (ie no findings c/w pneumonia, bacteremia, no complaints of symptoms c/w cellulitis, no urinary complaints, endocarditis was entertained but with negative blood cultures x4 thus far, lack of growth on cultures would suggest this to be fairly unlikely) -acute viral seems less likely w negative flu and biofire; while obviously no first-hand experience with COVID-19 and PCR is pending, his lack of cough/dyspnea, lack of radiographic findings, high (rather than low) white count, normal LFTs and LDH all seem to plead against this as the etiology - as does the fact that his (presumably of similar age) has been caring for him for the last 2 weeks with no signs of illness. it's unclear to me what infection control rules would state with a new and efx-sojx-cesxerdqum virus yet though -- ie it seems that his individual risk of having COVID19 seems quite low but the societal risk of "guessing wrong" while PCR is pending could be high. will have to wait on PCR unless further guidance from infection control - although certainly could be safe for home quarantine as well if his clinical picture continues to show stability -possible that he had an infection last week (viral or possibly occult bacterial treated with the empiric cipro/flagyl) and has residual WBC or mild leukemoid reaction with resolving constitutional symptoms (watchful waiting and serial CBCs for this) -possible that he has an underlying hematologic malignancy (given fairly stereotyped nocturnal fever/night sweats) - heme/onc eval on ?watchful waiting/serial CBC vs marrow -continue observation and supportive care (2) GERD (gastroesophageal reflux disease): Continue omeprazole as ordered. (3) Hypercholesterolemia: pravastatin 10 mg daily (4) Hypertension: Blood pressure remained stable on current medications, continue lisinopril hydrochlorothiazide as ordered. (5) Obstructive sleep apnea: CPAP nightly as per outpatient regimen. Admission and Anticipated Discharge Date Admission Date: November 02, 2019 Subjective pt on airborne precautions with COVID-19 PCR pending. unfortunately despite asking nursing licensed embalmer supervisor, clinical coordinator, employee health - PAPR device was unable to be found. while clinical suspicion on COVID-19 extremely low, without appropriate PPE i am unable to enter the room without risking possible exposure (again low probability given his clinical case, but would be high "fallout" if allowed further possible exposures to occur) due to this, case d/w Dr Donnelly - input appreciated, and extensive phone contact made with pt - explained PPE situation and he expressed understanding and no reservations on phone contact. d/w nursing extensively who noted that pt is doing quite well today, wants to be active and up and around, barely coughing at all. pt himself notes that his current illness started around 10/20 - is a little vague with chronology of early part of illness details, but seems to have started with abrupt onset of diarrhea - while they were driving home from [place] - to where he had to parts puller and find a restaurant to avoid an accident. this persisted for a day or so, then went away - believes that he felt good enough to have gone to [employer] 10/24. then somewhere after that started with fevers and body aches as the pain problem -feeling severe general malaise and fatigue as well. very little as far as focal symptoms -admits to a cough but only on directed questioning and then even notes that it's not persistent/deep/chest cough just a little bit of an occasional cough during the time he's been sick. notes that he had said sx and saw PCP who did flu swab, CBC then sent to ER due to WBC - in ER notes he had dx of diverticulitis but notes that he was doubtful as to whether this was actually the case - but took cipro/flagyl for about 5 days as Rx'd but did not feel any improvement. continued with fevers/night sweats (unclear how severe aches and malaise were at this point) and revisited PCP - noted "with all this coronavirus stuff going around maybe we should just rule that out" hence testing. also had repeat CBC - WBC up higher so sent to ER again. no focal sx. today malaise and aches are better than before - probably not totally gone but better - and appetite probably a little better. as our conversation goes on, he notes that he is getting a little tired and will probably lay down to rest here soon - which prompts him to remember that he generally starts the day feeling well, then as afternoon progresses he feels more tired, then will get fever and sweats at night, then feel a good deal better again by morning. on directed questioning he notes feeling normal the day before getting sick, and also feeling normal a few weeks before getting sick (2 lines of questioning both suggesting that he felt well until the first day he got sick, then worse fairly abruptly). his has been caring for him this whole time and she has not felt sick wtih anything. Review of Systems Review of Systems: All systems reviewed & are unremarkable except as noted in HPI & below Physical Exam Physical Exam: see above / see nurse's notes, dr donnelly's exam. Results & Data ([facility]) Vital Signs (Past 12 Hours) Vital Signs Temp Pulse Resp BP Pulse Ox 11/03/19 16:00 98.4 F 86 20 115/69 96 11/03/19 10:20 99.1 F 87 20 125/76 95 11/03/19 06:07 99.7 F H 93 H 18 133/81 95 PG Care Time/CCT Total # of Minutes Spent Total Time Spent with Patient: Total time spent is greater than 50% in coordination of care (as documented) at patient's floor/unit and/or counseling patient: Coding Level of Care Code None Diagnoses Fever of unknown origin R50.9 GERD (gastroesophageal reflux disease) K21.9 Hypercholesterolemia E78.00 Hypertension I10 Obstructive sleep apnea G47.33 Comment due to inability to procure PAPR device, i was able to interview pt extensively by phone
[2019-11-03] MEDS: PRAVASTATIN SOD 10 MG TAB PO SCH (20:05)
[2019-11-04 08:00] LABS: Basophils # (auto) 0.06 K/uL (0-0.2); Basophils % (auto) 0.3 %; Eosinophils # (auto) 0.74 K/uL (0-0.5); Eosinophils % (auto) 3.2 %; Hematocrit (blood only) 37.6 % (42-52); Hemoglobin 12.4 g/dL (14.0-18.0); Immature Granulocytes # (auto) 0.52 K/uL (0.00-0.02); Immature Granulocytes % (auto) 2.3 %; Lymphocytes # (auto) 2.33 K/uL (1.2-3.4); Lymphocytes % (auto) 10.2 %; Mean Corpuscular Hemoglobin 27.4 pg (25-34); Mean Platelet Volume 8.8 fL (7.4-10.4); Monocytes % (auto) 7.5 %; Neutrophils # (auto) 17.44 K/uL (1.4-6.5); Neutrophils % (auto) 76.5 %; Platelet Count 517 K/uL (130-400); RDW Coefficient of Variation 15.2 % (11.5-14.5); RDW Standard Deviation 46.1 fL (36.4-46.3); Red Blood Count 4.53 M/uL (4.7-6.1); White Blood Count 22.79 K/uL (4.8-10.8)
[2019-11-04] MEDS: FAMOTIDINE 20 MG TAB PO SCH (08:49)
[2019-11-04] MEDS: MULTIVITAMIN TAB PO SCH (08:49)
[2019-11-04] MEDS: PANTOprazole 40 MG TAB PO SCH (08:49)
[2019-11-04] MEDS: LISINOPRIL/HCTZ 10/12.5MG TAB PO SCH (08:50)
[2019-11-04] MEDS: MELOXICAM 7.5 MG TAB PO SCH (08:50)
[2019-11-04] MEDS: LACTOBACILLUS ACIDOPHILUS (FLORANEX) TAB PO SCH ×3 (08:50→17:13)
--- NOTE | 2019-11-04 13:27 | Infectious Disease Progress Nt ---
Date of Service November 04, 2019 Assessment & Plan (1) Leukocytosis: doubt bacterial infection, suspect noninfectious cause - autoimmune vs malignancy. He is currently clinically stable off of abx and blood cultures are negative (he also has negative blood cultures from 10/26 as well). with outpatient testing for coronavirus pending, he will need to remain in isolation while hospitalized, he does not display typical symptoms to suggest coronavirus infection, however. I would be in favor of d/c home and home isolation pending his results for coronavirus. He can then further pursue workup for ongoing leukocytosis on an outpatient basis. This will minimize any potential exposure to patients/health care providers and reserve PPE. Admission and Anticipated Discharge Date Admission Date: November 02, 2019 Subjective pt remains with negative blood cultures, clinically stable off of abx, wbc remains 22. tmax 37.7, isolated. ESR negative, viral panel negative to date but not yet complete. ESR >90. Results & Data ([facility]) Vital Signs (Past 12 Hours) Vital Signs Temp Pulse Resp BP BP Pulse Ox 11/04/19 13:04 37 C 99 H 20 119/78 96 11/04/19 09:54 37 C 106 H 20 127/78 95 Laboratory Results Microbiology 11/02/19 13:44 Blood Aerobic Blood Culture - Preliminary No growth in Aerobic bottle after 24 hours. 11/02/19 13:44 Blood Anaerobic Blood Culture - Preliminary No growth in Anaerobic bottle after 24 hours. 11/02/19 13:51 Blood Aerobic Blood Culture - Preliminary No growth in Aerobic bottle after 24 hours. 11/02/19 13:51 Blood Anaerobic Blood Culture - Preliminary No growth in Anaerobic bottle after 24 hours. PG Care Time/CCT Total # of Minutes Spent Total Time Spent with Patient: Total time spent is greater than 50% in coordination of care (as documented) at patient's floor/unit and/or counseling patient: Coding Level of Care Code 30420 Subseq Hosp Care Lvl 1 Diagnoses Leukocytosis D72.829 Leukocytosis type: unspecified (1) Leukocytosis Leukocytosis type: unspecified Qualified Code(s): D72.829 - Elevated white blood cell count, unspecified
--- NOTE | 2019-11-04 18:47 | Discharge Summary ---
Date of Service November 04, 2019 Admission HPI Per Admitting Provider This is a 69-year-old male with past medical history of BPH, GERD, hypercholesterolemia, and hypertension that presents today complaining of leukocytosis. Patient is seen with family and and all are good historians. Patient notes that his symptoms started around 10/17. Allergies were very nonspecific, with some general myalgias well with headache. He has had some poor appetite although he has had no overt nausea or vomiting. He did also notice subjective fevers. He does note significant night sweats as well which have progressed over the course of his illness. Patient was seen by his primary care physician on 10/26. At that time he was found to be negative for influenza. Patient went up in the emergency room later that day and had full work-up that included CT of the chest and abdomen as well as blood cultures. At that time, no significant findings were noted. There is a question of possible very early diverticulitis and the patient was discharged from the ER at that time with Cipro and metronidazole p.o. to take at home. Patient states that he continued to have symptoms and there is no change with the antibiotics. He also felt the symptoms were worsening and went to see his primary care physician earlier today. Patient was sent for a CBC along with a COVID-19 test. He was later contacted by his PCP and told to head to the emergency room as his white count was 24. Labs rechecked in emergency room and in fact he does have a significant leukocytosis. Patient continues to have symptoms that are mostly myalgias on the back and the lower abdomen. He has a mild headache. He does note that he had a fever of 101 at home. notes that the patient has been taking little in the way of diet is lost approximately 10 pounds since the beginning of the month. Patient denies any cough and does not appear to be in any cardiopulmonary distress. Principal Diagnosis fever, leukocytosis Discharge Exam gen aaox3 pleasant nad heent nc at mmm breathing unlabored no accessory muscles good effort skin no rashes no pallor or icterus. no focal neuro deficits. abd soft nd nt nontender no masses or organomegaly. Discharge Data Allergies Allergy/AdvReac Type Severity Reaction Status Date / Time No Known Allergies Allergy Verified 11/02/19 14:24 Consultations 11/02/19 14:30 ED Decision to Admit Stat 11/02/19 18:47 Consult Infectious Diseases Routine 11/03/19 13:44 Consult Hematology Routine Hospital Course (1) Fever of unknown origin: etiology not entirely certain - see below - but seems most likely to be drawn out post viral syndrome. -bacterial seems unlikely with nondescript CT chest/abd/pelvis last week and clear CXR yesterday, negative blood cultures last week and no growth to date from yesterday (ie no findings c/w pneumonia, bacteremia, no complaints of symptoms c/w cellulitis, no urinary complaints, endocarditis was entertained but with negative blood cultures x4 thus far, lack of growth on cultures would suggest this to be fairly unlikely)(was on cipro/flagyl as outpt no improvement, empiric zosyn here no change - stopped no significant worsening) ID evaluation without worrisome findings for bacterial infection -ongoing acute viral seems less likely w negative flu and biofire; while obviously no first-hand experience with COVID-19 and PCR is pending, his lack of cough/dyspnea, lack of radiographic findings, high (rather than low) white count, normal LFTs and LDH all seem to plead against this as the etiology - as does the fact that his has been caring for him for the last 2 weeks with no signs of illness. it's unclear to me what infection control rules would state with a new and hnc-nfft-iajkzepncf virus yet though -- ie it seems that his individual risk of having COVID19 seems quite low but the societal risk of "guessing wrong" while PCR is pending could be high. will have to wait on PCR but safe for home isolation given his stable vitals/clinical picture and ongoing w/u and f/u as outpt -possible that he had an infection last week (viral or possibly occult bacterial treated with the empiric cipro/flagyl) and has residual WBC or mild leukemoid reaction with resolving constitutional symptoms this seems most likely d/w pt to follow fever curve/severity and frequency of night sweats and safe/stable to follow at home - weekly CBC until normalizes (starting next week once COVID19 PCR returns as long as negative as expected) -possible that he has an underlying hematologic malignancy (given fairly stereotyped nocturnal fever/night sweats) - heme/onc eval appreciated and notes this is possible but not very likely - for now same plan as for post viral, BCR sent prior to discharge, then otupt f/u - if situation is not improving significantly or resolved by time of heme/onc appt in a few weeks, then they will evaluate further (such as possibly marrow bx) -safe/stable for outpt observation as above (2) GERD (gastroesophageal reflux disease): Continue omeprazole as ordered. (3) Hypercholesterolemia: pravastatin 10 mg daily (4) Hypertension: home on home meds (5) Obstructive sleep apnea: CPAP nightly as per outpatient regimen. to call sleep physician as he does note fatigue over the last few months, and does note that a few months ago they increased his CPAP settings - ?possibly still undertreated and should increase settings further Total Time Total Time Spent Total Time Spent (In Minutes): >30 Discharge Plan Discharge Items Patient Disposition: Home - Self-Care Reason For Visit: FUO Discharge Diagnosis: fever, elevated white blood cell count - see below Condition on Discharge: Good Activity: Resume your previous activity Non-emergency contact: Primary Care Provider Call non-emergency contact if: you have any medication questions Follow-up/Referrals: ProAlexis MD [Primary Care Provider] - (Please call your PCP's office to determine if you are to be seen in follow-up.) Diet: Regular Addtl Attending Provider Instructions: fever/elevated white cell count -the "could be list" for your symptoms and lab findings is fairly broad, but as we've worked things up extensively it appears most likely to be a long drawn out viral syndrome (see below) ----bacterial infections can cause this, but you had no symptoms consistent with "usual" bacterial infections (pneumonia, skin infection, urine infection) and twice (on 10/26 and 11/02) your blood cultures have not shown any hidden bloodstream infection (the set drawn on 11/01 will be allowed to grow in the lab for 5 days before it's done - but with no growth thus far it's highly unlikely anything will show up - if it does we would call right away); further you didn't improve on the cipro/flagyl regimen which is a pretty broad coverage that would treat a wide array of bacterial infections; and they initially started zosyn here (which is equally broad, but with a different means of killing bacteria) with no sign of improvement on the antibiotics -- all this is a long-winded way of saying that we've really thoroughly looked into the prospect of bacterial infection and have not seen anything as a possible cause; likewise, we looked for the two tick-borne illnesses we see around here that can sometimes be vague (lyme and anaplasmosis) with no sign that they're at play ----blood "pathology" (smoldering, low grade lymphoma type pictures) can cause this too - but given the abrupt onset of symptoms it doesn't at all fit the pattern, and looking at your blood cells under the microscope, they don't show anything abnormal about them except that there's too many - which is really reassuring (usually blood pathology will show not only too many cells, but many will look odd, atypical, cancerous, etc which we're not seeing with you) ----long drawn out viral illnesses can cause this - and this seems most likely. given that your symptoms started with diarrhea, and have mostly been fatigue, a spiking fever, and night sweats; a viral illness would fit the most. of note, the coronavirus test has been taking about a week to come back, so it's quite likely that won't be back until early next week; during that time, while you don't look like what has been reported for coronavirus, we'd highly recommend that you isolate to avoid any risk of potential spread - but again, as we discussed, it seems quite unlikely that this is what's going on with you more than coronavirus and about as much as influenza, we've seen a large amount of odd/atypical viral syndromes this winter -- and what we'd expect if this is the case is that slowly over the next week or two your temps will come down (since you have been in the hospital your highest has only been 99.9F) and the sweats should lessen -- because there's not anything we can do to truly get rid of a viral infection, we just have to let your body do it, there's not specific steps you would take to make the fever go away or make the sweats go away -- more importantly we'd recommend you track them each day so that when you follow up there is a pattern to follow. our expectation is that over time the temps will spike to less and less high degrees and then go away, and that the sweats will be less and less drenching, and then go away. during that time, we'll have you get weekly labwork (CBC) to follow your white count until it's normal. we'll also have follow up scheduled with Dr Fox in a few weeks - if your fevers/sweats haven't gone away by then and if your white count hasn't improved by then, at that point he might need to look into things further; but as we discussed, even if it was something blood related, it would be much more in the slow/smoldering way that often just needs followed not even really treated. preceeding fatigue -as we discussed, with your symptoms now having appeared to start fairly abruptly about 2 weeks ago, the fatigue you've been feeling before is likely unrelated. common things being common, and knowing they just increased your CPAP a few months ago, undertreated sleep apnea would be an exceedingly likely reason for feeling more fatigued lately. before launching into a whole separate workup for feeling fatigued, we'd recommend you call your sleep doc's office and note that you've been feeling more fatigued the last few months - they'll be able to guide further on if they think you should adjust the CPAP up more; and follow up with you if they do. To Do: -gradually return to your usual activities, but self-isolate for now until the coronavirus test is back (expect it to be early next week); understand that since your has been exposed to what's been going on for the whole time and she hasn't gotten sick (and you're slowly feeling better) it's quite unlikely that you're contagious to her. (and again to be clear, this is almost certainly a viral syndrome but doubtful to be coronavirus) -have bloodwork (CBC) checked once a week starting next week (Dr Lang will order, and start it once the coronavirus test is back and negative so that you don't have to worry about how to get labs done under isolation conditions) -track your temperature every day so that Dr Lang and Dr Fox can follow the pattern, and track the severity and frequency of sweats -call your sleep doc about the fatigue - they may need to adjust the CPAP settings up further housekeeping: both meloxicam and ibuprofen are anti-inflammatories -- taking both together can be really hard on your stomach and/or kidneys. we'd recommend you not take both in the same 24 hour period. Pending Studies at Discharge: Yes Studies:: coronavirus PCR test Stand-Alone Forms: My [facility], Smoking Cessation Medications and DC Order Prescriptions: Continued multivitamin tablet 1 tab PO QAM RF: 0 famotidine 20 mg tablet 20 mg PO BID 42 Days Qty: 84 RF: 0 (DME) CPAP Machine Misc See Rx Instructions .ROUTE .MEDSUPPLY Qty: 1 RF: 0 pravastatin 10 mg tablet 10 mg PO HS RF: 0 acetaminophen [Tylenol Extra Strength] 500 mg Tablet 1,000 mg PO Q8 PRN (Reason: Fever Or Pain) RF: 0 Unknown Eye Drop 1 drp OPB QAM RF: 0 lisinopril-hydrochlorothiazide 10-12.5 mg tablet 1 tab PO QAM RF: 0 meloxicam 15 mg tablet 15 mg PO QAM RF: 0 omeprazole 40 mg capsule,delayed release(DR/EC) 40 mg PO QAM RF: 0 Discontinued metronidazole 500 mg tablet 500 mg PO Q8H 10 Days Qty: 30 RF: 0 ciprofloxacin HCl [Cipro] 500 mg tablet 500 mg PO BID 10 Days Qty: 20 RF: 0 ibuprofen 200 mg Tablet 200 mg PO Q6H PRN (Reason: Pain) RF: 0 Discharge Orders: Discharge Order (Routine); Ordered 11/04/19 Ordered By: Juordan Rodriges Admission Data Admit Date/Time: 11/02/19 16:02 Attending Provider: Jourdan Rodriges Admit Provider: Arnulfo Zamora Primary Care Provider: Alexis Lang Other Providers: Arnulfo Zamora ; Stacy Donnelly ; Elian Fox Other Interventions: Discharge Summary Assessment (RN) Last Done: 11/04/19 15:49 DC Date/Time DO NOT enter until pt leaves facility: 11/04/19 17:55 Coding Level of Care Code D/C Day Management >30 mins Diagnoses Fever of unknown origin R50.9 GERD (gastroesophageal reflux disease) K21.9 Hypercholesterolemia E78.00 Hypertension I10 Obstructive sleep apnea G47.33
[2019-11-05 11:55] LABS: Epstein Barr Virus Early Ag Ab <9.00 U/mL
--- NOTE | 2019-11-06 08:16 | Oncology Consultation ---
Date of Consultation November 04, 2019 Assessment & Plan (1) Fever of unknown origin: Mr. Roberto is experiencing fevers and does not have an obvious infectious source. The fevers are happening mostly at night, suggesting possible night sweats, which raised the question of a hematologic malignancy. He does not have any overt evidence of such a disease. He has had CTs of his chest, abdomen, and pelvis within the last week and, while the A/P study was without contrast and thus limited in assessing lymph nodes, did not reveal any pathologic adenopathy or other findings to suggest an occult malignancy. His leukocytosis is entirely a neutrophilia and a peripheral smear revealed no evidence of atypia, dysplastic changes, or immature forms. He also felt entirely normal until the day his febrile illness began and it is unusual for malignancies to become symptomatic so abruptly. His neutrophilia and high platelets, ESR, CRP, and ferritin all point to an inflammatory process. He has no symptoms suggestive of a specific connective tissue disease, but that would be in the differential. He also could have a viral illness that we haven't identified. CML can sometimes present with neutrophilia and thrombocytosis before the manifestation of the more characteristic finding of increased circulating marrow forms. As a result, screening him for BCR/ABL is reasonable. Otherwise, I would like to trend his CBC for a bit. If his symptoms persist and no source is identified, it would be appropriate to start a more in depth workup for fever of unknown origin, including evaluation for rare infections and autoimmune disease. I will see Mr. Roberto in my office in about 2 weeks to follow up on his results. If he gets worse in that time, he can also see his PCP or the transitional care clinic. Present on Admission?: Yes History of Present Illness Reason for Consultation: Leukocytosis Fever of unknown origin Attending Physician: Jourdan Rodriges, DO History of Present Illness Mr. Roberto is a 69 year old man with a history of HTN, CLEO, and GERD. For about 2 weeks prior to admission, Mr. Roberto has been feeling unwell. His symptoms have included fevers, myalgias, and severe fatigue. He did have a cough at times, though this was not his primary concern. He also had one episode of sudden diarrhea early in the illness. His fevers ranged from 99-102 and were most prominent in the evenings, sometimes leading to him waking up sweating. He saw his PCP about a week prior to admission and had a flu swab that was negative. He also had a mild neutrophilia (15K) and so was sent to the ER. A CT there revealed diverticulosis but otherwise no acute findings. He was treated empirically for diverticulitis, but stopped cipro and Flagyl after about 5 days as he didn't feel better. He presented to the ER again on 11/01 with this same constellation of symptoms. He denies any sick contacts, including his who has been caring for him this whole time. He denies any recent travel or exposure to people who have been out of the country. He denies any palpable lymph nodes. Prior to 2 weeks ago, he was in his usual state of health and felt fine. He denies any abnormal bleeding or bruising. He has no acute or worsening pain, aside from the myalgias he has with the fevers. Allergies Allergy/AdvReac Type Severity Reaction Status Date / Time No Known Allergies Allergy Verified 11/02/19 14:24 Home Medications Home Medications Medication Instructions Recorded Confirmed Type multivitamin 1 tab PO QAM 06/22/19 11/05/19 History famotidine 20 mg tablet 20 mg PO BID 42 Days #84 tab 06/24/19 11/05/19 Rx pravastatin 10 mg PO HS 07/13/19 11/05/19 History CPAP Machine #1 ea 07/30/19 11/05/19 Rx Unknown Eye Drop 1 drp OPB QAM 10/27/19 11/05/19 History acetaminophen [Tylenol Extra 1,000 mg PO Q8 PRN 10/27/19 11/05/19 History Strength] lisinopril-hydrochlorothiazide 1 tab PO QAM 10/27/19 11/05/19 History meloxicam 15 mg PO QAM 11/02/19 11/05/19 History omeprazole 40 mg PO QAM 11/02/19 11/05/19 History Patient History Medical History Enlarged prostate without lower urinary tract symptoms (luts) (Acute) GERD (gastroesophageal reflux disease) (Acute) Hypercholesterolemia (Acute) Hypertension (Acute) Obstructive sleep apnea (Acute) CPAP Osteoarthritis Surgical History Cornea transplant recipient RT/LEFT History of appendectomy History of arthroscopy LEFT KNEE History of cataract surgery RT/LEFT History of cholecystectomy History of colonoscopy History of prostate surgery TUNA PROCEDURE History of tooth extraction Hx of hemorrhoidectomy Family History Mother Myocardial infarction Grandfather (Maternal) Myocardial infarction Grandmother (Maternal) Diabetes Other Family history of ischemic heart disease before age 50 Denies family history of Colon cancer Ovarian cancer Prostate cancer Breast cancer Social History Preferred Language: Albanian Communication Ability: Effective Visual Impairment: No Limitations Hearing Ability: Normal 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 Beliefs That Will Affect Care: None marital status: Current Living Situation: Spouse current occupational status: retired Feels Safe at Home: Yes Smoking Status: Former smoker Second Hand Exposure: No ; Hx Alcohol Use: Yes Alcohol type: beer Alcohol Intake Frequency: Rarely Hx Substance Use: No Dental Care, Regularly: Yes Physical Activity Frequency: 1-2 Times per Week Seatbelt Use: always Sunscreen Use: No Review of Systems Review of Systems: All systems reviewed & are unremarkable except as noted in HPI & below Physical Exam Physical Exam: Exam was limited due to the use of a PAPR mask, which prevented auscultative exam General: comfortable, well-appearing middle aged man in no distress HEENT: mucous membranes moist, oropharynx clear Neck: supple with no adenopathy Chest: No increased work of breathing Abdomen: Soft, non-tender, and non-distended Extremities: warm and well-perfused with no edema Psych: AAO x 3, euthymic affect Heme: no palpable lymphadenopathy or evidence of abnormal bleeding or bruising Skin: no visible rashes Results & Data Laboratory Results Laboratory Tests 11/02/19 11/02/19 11/02/19 09:31 13:51 13:51 WBC Hgb Plt Count Neut # (Auto) ESR > 90 H Ferritin 1327.6 H Lactate Dehydrogenase C-Reactive Protein 17.80 H 11/03/19 11/04/19 07:57 07:36 WBC 22.79 H Hgb 12.4 L Plt Count 517 H Neut # (Auto) 17.44 H ESR Ferritin Lactate Dehydrogenase 160 C-Reactive Protein Viral serologies have so far been negative, though the testing for COVID-19 is still pending. His cultures have all been negative as well.
== END 2019-11-04 17:55 | disposition home or self-care (01) | DRG 948 ==
LOC: ED 13:09 → 2W 16:02 → SUATTDRO 16:02 → 2W 18:14

== ENCOUNTER 2019-11-06 11:56 | Observation (INO) ==
[2019-11-06] MEDS ORDERED: SODIUM CHLORIDE 0.9% 1000ML 1,000 ML IV SCH (12:30)
--- NOTE | 2019-11-06 13:02 | Emergency Department Note ---
History of Present Illness General Chief complaint: Diarrhea Stated complaint: DIARRHEA,FEVER,SHEATING Time Seen by Provider: 11/06/19 12:24 History of Present Illness The patient is a 69-year-old male who presented to the emergency department for dark stool. The patient has been noticing loose bowel movements. The patient was recently in our facility because of elevated white blood cell count and abdominal pain. He had laboratory and radiographic studies and was treated presumptively for diverticulitis. He was seen by his primary care physician recently but antibiotics were stopped because they felt the patient's condition was not consistent with diverticulitis. He states his abdominal pain started to improve. He started having loose bowel movements over the last 24 hours which have been dark. He called his primary care physician again to be evaluated but was instead sent to the emergency department for fear of GI bleeding. The patient denies having any fevers. The patient denies having any cough or chest pain. He denies having any nausea or vomiting at this time. He denies having any rash or lower extremity pain. The patient was seen by multiple services while he was in the hospital. There was concern about the patient's elevated white blood cell count. He is not currently on any antibiotics. He does still note some night sweats. Home Medications Home Medications Medication Instructions Recorded Confirmed Type multivitamin 1 tab PO QAM 06/22/19 11/06/19 History famotidine 20 mg tablet 20 mg PO BID 42 Days #84 tab 06/24/19 11/06/19 Rx pravastatin 10 mg PO HS 07/13/19 11/06/19 History CPAP Machine #1 ea 07/30/19 11/05/19 Rx Unknown Eye Drop 1 drp OPB QAM 10/27/19 11/06/19 History acetaminophen [Tylenol Extra 1,000 mg PO Q8 PRN 10/27/19 11/06/19 History Strength] lisinopril-hydrochlorothiazide 1 tab PO QAM 10/27/19 11/06/19 History meloxicam 15 mg PO QAM 11/02/19 11/06/19 History omeprazole 40 mg PO QAM 11/02/19 11/06/19 History Allergies Allergy/AdvReac Type Severity Reaction Status Date / Time No Known Allergies Allergy Verified 11/06/19 13:53 Past Med/Surg History Medical History Enlarged prostate without lower urinary tract symptoms (luts) (Acute) GERD (gastroesophageal reflux disease) (Acute) Hypercholesterolemia (Acute) Hypertension (Acute) Obstructive sleep apnea (Acute) CPAP Osteoarthritis Surgical History Cornea transplant recipient RT/LEFT History of appendectomy History of arthroscopy LEFT KNEE History of cataract surgery RT/LEFT History of cholecystectomy History of colonoscopy History of prostate surgery TUNA PROCEDURE History of tooth extraction Hx of hemorrhoidectomy Family History Mother Myocardial infarction Grandfather (Maternal) Myocardial infarction Grandmother (Maternal) Diabetes Other Family history of ischemic heart disease before age 50 Denies family history of Colon cancer Ovarian cancer Prostate cancer Breast cancer Social History Preferred Language: Mongolian Communication Ability: Effective Visual Impairment: No Limitations Hearing Ability: Normal 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 and A total of 10 systems reviewed and were otherwise negative Physical Exam Vital Signs Vital Signs - 24 hr 11/06/19 12:03 11/06/19 12:50 11/06/19 13:00 Temperature 36.7 C Temperature Source Oral Pulse Rate 107 H Pulse Rate [Apical] 70 Respiratory Rate 20 16 Respiratory Effort / Characteristics Non-Labored Spontaneous Respiratory Depth Normal Blood Pressure 114/74 Blood Pressure [Left Arm] 125/75 Blood Pressure Mean 87 Blood Pressure Mean [Left Arm] 91 Blood Pressure Position Sitting Pulse Oximetry 97 95 Oxygen Delivery Method Room Air Sepsis Recent Fever Within 48 Hours No Sepsis New/Unexplained Change in Mental Status No Sepsis Action Taken by Nursing No Action Required 11/06/19 14:51 Temperature Temperature Source Pulse Rate Pulse Rate [Apical] 80 Respiratory Rate 18 Respiratory Effort / Characteristics Respiratory Depth Blood Pressure Blood Pressure [Left Arm] 116/75 Blood Pressure Mean Blood Pressure Mean [Left Arm] 88 Blood Pressure Position Pulse Oximetry 97 Oxygen Delivery Method Room Air Sepsis Recent Fever Within 48 Hours Sepsis New/Unexplained Change in Mental Status Sepsis Action Taken by Nursing GENERAL: Patient is awake alert in no acute distress patient is resting comfortably and showing no signs of anxiety EYES: The conjunctivae are clear. The pupils are round and reactive. EARS, NOSE, MOUTH AND THROAT: The nose is without any evidence of any deformity. Mucous membranes are moist. Tongue is midline. NECK: The neck is nontender and supple. RESPIRATORY: Normal respiratory effort is noted there is no evidence of wheezing rhonchi or rales CARDIOVASCULAR: Regular rate and rhythm noted there no murmurs rubs or gallops normal S1 normal S2. GASTROINTESTINAL: The abdomen is soft and nondistended. There is left upper quadrant tenderness to palpation but no guarding rigidity. Rectal exam revealed dark stool which was trace heme positive. MUSCULOSKELETAL/EXTREMITIES: There is no evidence of gross deformity full range of motion is noted in the hips and shoulders. SKIN: There is no obvious evidence of any rash. There are no petechiae, pallor or cyanosis noted. NEUROLOGIC: Patient is awake alert and oriented x3 strength is symmetric patellar reflexes are 2+ bilaterally Course Course 1550: I discussed the case with Carmen. Who was covering for the [facility] hospitalist group. Administered Medications Discontinued Medications Sodium Chloride (Nss 1000ml) 1,000 mls @ 999 mls/hr IV .[id number] [id number] Stop: 11/06/19 13:30 Last Infusion: 11/06/19 14:27 Dose: 0 mls/hr Documented by: [id number] Admin: 11/06/19 13:00 Dose: 999 mls/hr Documented by: [id number] Pantoprazole Sodium 40 mg/ (Syringe) 10 mls @ 5 mls/min IV NOW ONE Stop: 11/06/19 15:11 Last Admin: 11/06/19 15:31 Dose: 5 mls/min Documented by: [id number] Medical Decision Making Differential Diagnosis Etiologies such as appendicitis, diverticulitis, obstruction, inflammatory b owel disease, renal colic, PUD, biliary pathology, pancreatitis, mesenteric ischemia, aortic pathology, infections, genitourinary, UTI, perforated viscus, as well as others were entertained. Medical Records Attestation: I reviewed the patient's medical records. Home Medications Current Medication List: was personally reviewed by me Laboratory Data Attestation: I reviewed the patient's lab results. Result diagrams: 11/06/19 12:56 11/06/19 12:56 Lab Results 11/06/19 11/06/19 11/06/19 Range/Units 12:56 12:56 12:56 WBC 21.68 H (4.8-10.8) K/uL RBC 4.26 L (4.7-6.1) M/uL Hgb 11.9 L (14.0-18.0) g/dL Hct 35.7 L (42-52) % MCV 83.8 (80-100) fL MCH 27.9 (25-34) pg MCHC 33.3 (32-36) g/dL RDW Std Deviation 46.4 H (36.4-46.3) fL RDW Coeff of [place] 15.1 H (11.5-14.5) % Plt Count 568 H (130-400) K/uL MPV 8.8 (7.4-10.4) fL Immature Gran % (Auto) 1.3 % Neut % (Auto) 79.7 % Lymph % (Auto) 9.0 % [place] % (Auto) 7.2 % Eos % (Auto) 2.5 % Baso % (Auto) 0.3 % Immature Gran # (Auto) 0.28 H (0.00-0.02) K/uL Neut # (Auto) 17.27 H (1.4-6.5) K/uL Lymph # (Auto) 1.95 (1.2-3.4) K/uL [place] # (Auto) 1.57 H (0.11-0.59) K/uL Eos # (Auto) 0.55 H (0-0.5) K/uL Baso # (Auto) 0.06 (0-0.2) K/uL PT 12.8 H (9.0-12.0) Seconds INR 1.2 H (0.9-1.1) APTT 31.6 H (21.0-31.0) Seconds PTT Ratio 1.1 Sodium 137 (136-145) mmol/L Potassium 3.8 (3.5-5.1) mmol/L Chloride 102 (98-107) mmol/L Carbon Dioxide 30 (21-32) mmol/L Anion Gap 5.0 (3-11) BUN 10 (7-18) mg/dl Creatinine 0.84 (0.6-1.4) mg/dl Est Cr Clr Drug Dosing 96.5 ml/min Est GFR ( Amer) 104.3 Est GFR (Non-Af Amer) 90.0 BUN/Creatinine Ratio 11.7 (10-20) Glucose 121 H (70-99) mg/dl Lactate (0.4-2.0) mmol/L Calcium 8.7 (8.5-10.1) mg/dl Total Bilirubin 0.3 (0.2-1) mg/dl AST 136 H (15-37) U/L ALT 181 H (12-78) U/L Alkaline Phosphatase 115 (45-117) U/L Total Protein 7.3 (6.4-8.2) gm/dl Albumin 2.1 L (3.4-5.0) gm/dl Globulin 5.2 H (2.5-4.0) gm/dl Albumin/Globulin Ratio 0.4 L (0.9-2) Lipase 104 (73-393) U/L Urine Color Urine Appearance (Clear) Urine pH (4.5-7.5) Ur Specific [place] (1.000-1.030) Urine Protein (Negative) Urine Glucose (UA) (Negative) Urine Ketones (Negative) Urine Blood (Negative) Urine Nitrite (Negative) Urine Bilirubin (Negative) Urine Urobilinogen (Negative) Ur Leukocyte Esterase (Negative) 11/06/19 11/06/19 Range/Units 12:56 14:45 WBC (4.8-10.8) K/uL RBC (4.7-6.1) M/uL Hgb (14.0-18.0) g/dL Hct (42-52) % MCV (80-100) fL MCH (25-34) pg MCHC (32-36) g/dL RDW Std Deviation (36.4-46.3) fL RDW Coeff of [place]hell (11.5-14.5) % Plt Count (130-400) K/uL MPV (7.4-10.4) fL Immature Gran % (Auto) % Neut % (Auto) % Lymph % (Auto) % [place] % (Auto) % Eos % (Auto) % Baso % (Auto) % Immature Gran # (Auto) (0.00-0.02) K/uL Neut # (Auto) (1.4-6.5) K/uL Lymph # (Auto) (1.2-3.4) K/uL [place] # (Auto) (0.11-0.59) K/uL Eos # (Auto) (0-0.5) K/uL Baso # (Auto) (0-0.2) K/uL PT (9.0-12.0) Seconds INR (0.9-1.1) APTT (21.0-31.0) Seconds PTT Ratio Sodium (136-145) mmol/L Potassium (3.5-5.1) mmol/L Chloride (98-107) mmol/L Carbon Dioxide (21-32) mmol/L Anion Gap (3-11) BUN (7-18) mg/dl Creatinine (0.6-1.4) mg/dl Est Cr Clr Drug Dosing ml/min Est GFR ( Amer) Est GFR (Non-Af Amer) BUN/Creatinine Ratio (10-20) Glucose (70-99) mg/dl Lactate 1.5 (0.4-2.0) mmol/L Calcium (8.5-10.1) mg/dl Total Bilirubin (0.2-1) mg/dl AST (15-37) U/L ALT (12-78) U/L Alkaline Phosphatase (45-117) U/L Total Protein (6.4-8.2) gm/dl Albumin (3.4-5.0) gm/dl Globulin (2.5-4.0) gm/dl Albumin/Globulin Ratio (0.9-2) Lipase (73-393) U/L Urine Color [place] Urine Appearance Clear (Clear) Urine pH 6.0 (4.5-7.5) Ur Specific [place] 1.008 (1.000-1.030) Urine Protein Negative (Negative) Urine Glucose (UA) Negative (Negative) Urine Ketones Negative (Negative) Urine Blood Negative (Negative) Urine Nitrite Negative (Negative) Urine Bilirubin Negative (Negative) Urine Urobilinogen Negative (Negative) Ur Leukocyte Esterase Negative (Negative) Imaging Data Radiologist's Impression: Radiographic studies were reviewed. Chest x-ray revealed no acute disease and abdominal flatplate revealed no acute disease according to radiology report. Blood Pressure Blood Pressure Findings: Normal blood pressure Blood Pressure Disposition: did not require urgent referral MDM Narrative The patient is a 69-year-old male who presented to the emergency department for dark stool. The patient was recently in our facility for an acute febrile illness. The patient has had ongoing symptoms for approximately 1 week and possibly more. The patient initially had a complete work-up by his primary care physician which included laboratory studies. He also had a coronavirus test at that time. The patient was sent to the emergency department when his white blood cell count was found to be very elevated. The patient was admitted to our facility but no definite cause for this elevation in his white blood cell count could be noted. He was sent home but was sent back to the emergency department today because of dark stool. The patient was found to have heme positive stool on physical exam. His abdominal exam was not consistent with an acute surgical abdomen. I discussed the patient's laboratory and radiographic studies with him. Given his ongoing leukocytosis as well as his abdominal pain and now GI bleeding I will discuss his case with the on-call [facility] hospitalist. I do feel the patient may require further inpatient management to further evaluate the cause of these findings. Impression & Plan Acute upper GI bleed, Abdominal pain, Elevated WBC count Discharge Plan Visit Data Chief Complaint: Diarrhea Stated Complaint: DIARRHEA,FEVER,SHEATING ED Provider: Alexis Guallpa Discharge Problem: Acute upper GI bleed, Abdominal pain, Elevated WBC count Patient Disposition: Being Evaluated by Hospitalist Condition: Good Forms Stand Alone Forms: My [facility] [employer] Prescriptions Prescriptions: No Action multivitamin tablet 1 tab PO QAM RF: 0 famotidine 20 mg tablet 20 mg PO BID 42 Days Qty: 84 RF: 0 (DME) CPAP Machine Misc See Rx Instructions .ROUTE .MEDSUPPLY Qty: 1 RF: 0 pravastatin 10 mg tablet 10 mg PO HS RF: 0 acetaminophen [Tylenol Extra Strength] 500 mg Tablet 1,000 mg PO Q8 PRN (Reason: Fever Or Pain) RF: 0 Unknown Eye Drop 1 drp OPB QAM RF: 0 lisinopril-hydrochlorothiazide 10-12.5 mg tablet 1 tab PO QAM RF: 0 meloxicam 15 mg tablet 15 mg PO QAM RF: 0 omeprazole 40 mg capsule,delayed release(DR/EC) 40 mg PO QAM RF: 0 Referrals Referrals: Alexis Lang MD [Primary Care Provider] - Discharge Problem: Abdominal pain Qualifiers: Abdominal location: left upper quadrant Qualified Code(s): R10.12 - Left upper quadrant pain Elevated WBC count Qualifiers: Leukocytosis type: unspecified Qualified Code(s): D72.829 - Elevated white blood cell count, unspecified
[2019-11-06 13:05] LABS: Basophils # (auto) 0.06 K/uL (0-0.2); Basophils % (auto) 0.3 %; Eosinophils # (auto) 0.55 K/uL (0-0.5); Eosinophils % (auto) 2.5 %; Hematocrit (blood only) 35.7 % (42-52); Hemoglobin 11.9 g/dL (14.0-18.0); Immature Granulocytes # (auto) 0.28 K/uL (0.00-0.02); Immature Granulocytes % (auto) 1.3 %; Lymphocytes # (auto) 1.95 K/uL (1.2-3.4); Mean Corpuscular Hemoglobin 27.9 pg (25-34); Mean Corpuscular Hgb Conc 33.3 g/dL (32-36); Mean Corpuscular Volume 83.8 fL (80-100); Mean Platelet Volume 8.8 fL (7.4-10.4); Monocytes # (auto) 1.57 K/uL (0.11-0.59); Monocytes % (auto) 7.2 %; Neutrophils # (auto) 17.27 K/uL (1.4-6.5); Neutrophils % (auto) 79.7 %; Platelet Count 568 K/uL (130-400); RDW Coefficient of Variation 15.1 % (11.5-14.5); RDW Standard Deviation 46.4 fL (36.4-46.3); Red Blood Count 4.26 M/uL (4.7-6.1); White Blood Count 21.68 K/uL (4.8-10.8)
[2019-11-06 13:17] LABS: INR 1.2 (0.9-1.1); Partial Thromboplastin Ratio 1.1; Partial Thromboplastin Time 31.6 Seconds (21.0-31.0); Prothrombin Time 12.8 Seconds (9.0-12.0)
[2019-11-06 13:22] LABS: Albumin Level 2.1 gm/dl (3.4-5.0); BUN Creatinine Ratio 11.7 (10-20); Calcium 8.7 mg/dl (8.5-10.1); Creatinine Clr Calc Pharmacy 96.5 ml/min; Est GFR (African American) 104.3; Potassium 3.8 mmol/L (3.5-5.1)
[2019-11-06 13:25] LABS: Albumin Globulin Ratio 0.4 (0.9-2); Bilirubin,Total 0.3 mg/dl (0.2-1); Globulin 5.2 gm/dl (2.5-4.0); Total Protein 7.3 gm/dl (6.4-8.2)
[2019-11-06 14:56] LABS: Appearance Urine Clear (Clear); Bilirubin Urine Negative (Negative); Blood Urine Negative (Negative); Color Urine Orange; Glucose Urine UA Negative (Negative); Ketones Urine Negative (Negative); Leukocyte Esterase Urine Negative (Negative); Nitrite Urine Negative (Negative); Protein Urine Negative (Negative); Specific Gravity Urine 1.008 (1.000-1.030); Urobilinogen Urine Negative (Negative)
--- NOTE | 2019-11-06 14:56 | XRay Report ---
XR chest 1V portable CLINICAL HISTORY: pain dyspnea COMPARISON STUDY: 11/02/2019 FINDINGS: The bones soft tissues and hemidiaphragms are normal. The cardiomediastinal silhouette is n ormal. The lungs are clear. The pulmonary vasculature is normal. IMPRESSION: Negative chest. ACT 112: Negative or not required by law. The above report was generated using voice recognition software. It may contain grammatical, syntax or spelling errors. Electronically signed by: Migel Jenkins M.D. 11/06/2019 2:55 PM
--- NOTE | 2019-11-06 14:57 | XRay Report ---
KUB HISTORY: Generalized abdominal pain COMPARISON: None. FINDINGS: The bowel gas pattern is unremarkable. There are no dilated loops of small bowel to suggest an obstruction. No renal calculi. No ureteral calculi. Calcifications in the deep pelvis likely rep resent phleboliths. Prior cholecystectomy. No pneumoperitoneum or pneumatosis. IMPRESSION: 1. No renal or ureteral calculi. 2. No evidence for bowel obstruction. 3. Prior cholecystectomy. ACT 112: Negative or not required by law. Electronically signed by: Cl Haynes M.D. 11/06/2019 2:55 PM
[2019-11-06] MEDS ORDERED: PANTOprazole 40 MG in SYRINGE 0 ML IV ONE (15:10)
--- NOTE | 2019-11-06 17:16 | History & Physical Report ---
Date of Service November 06, 2019 Assessment & Plan (1) Diarrhea: with dark black concern would be for GI bleed - but given diarrhea has stopped, blood counts are for all purposes identical to saturday (down 0.5), no tachycardia no hypotension - highly doubtful. 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 suspect will be negative but given hospital stay and recent abx, is appropriate to send stool for Cdiff biggest ddx is abx associated (non Cdiff) vs secondary to a different/new viral illness --supporting abx associated - he appears nontoxic, had loose stools yesterday as well that progressed some, had been on cipro a week prior and (while for only a short time) was on zosyn during 11/01-11/03 stay --supporting viral is elevation of LFT (although zosyn can do this too) and multiple viral etiologies being present in the community ----> follow clinically follow diarrhea, stool for Cdiff, CBC/CMP in AM -- if diarrhea stops and labs are stable/improved then home. if counts drop then GI vs PRBC scan. if LFTs rise then image liver. anticipate spontaneous improvement. discussed this vs outpt management with outpt labs in AM but pt and opted for staying given his overall recent clinical course, which is reasonable. (2) Leukocytosis: suspect long drawn out viral course - see 11/01-11/03 visit. fortunately nothing about his current presentation changes that ddx by much, other than if his white count today is artifically up due to diarrhea (3) Night sweats: see above (4) Fever of unknown origin: see above, follow temp curve *of note, pt does have pending COVID19 testing, clinically low suspicion given lack of significant respiratory symptoms as well as given that his overall course of illness started before many (?any) known cases in [place], as well as that his has been with him for weeks and she has not been ill. (5) Hypertension: home meds (6) Obstructive sleep apnea: CPAP (7) DVT prophylaxis: SCDs, ambulation (8) Discharge planning issues: obs, medical, hopefully home tomorrow with above plan. History of Present Illness Chief Complaint: black diarrhea Primary Care Provider: Alexis Lang MD went home saturday, lower temp - 99.9, night sweats saturday night. 99.6 and sweats. temps were coming down, generally feeling better. appetite was improving. loose BM yesterday but not black. this AM ~6 episodes black and lumpy diarrhea and crampy abdominal pain only at the time of the diarrhea but not really any other abdominal pain. no abdominal pain now. no epigastric pain/nausea/vomiting. ate oatmeal this AM nothing since but not due to pain/nausea/etc just due to coming to ER and then being here. had called office and when they talked black stools they told him to come to ER. no new f/c/s. just the above noted pattern of slowly resolving night fevers and sweats appetite had improved some - not normal yet but better chronic L leg pain/paresthesia but nothing new/different than it's been for years no sob cp or cough (although does have one short cough while i'm in the room) still not sick Allergies Allergy/AdvReac Type Severity Reaction Status Date / Time No Known Allergies Allergy Verified 11/06/19 13:53 Home Medications Home Medications Medication Instructions Recorded Confirmed Type multivitamin 1 tab PO QAM 06/22/19 11/06/19 History famotidine 20 mg tablet 20 mg PO BID 42 Days #84 tab 06/24/19 11/06/19 Rx pravastatin 10 mg PO HS 07/13/19 11/06/19 History CPAP Machine #1 ea 07/30/19 11/05/19 Rx Unknown Eye Drop 1 drp OPB QAM 10/27/19 11/06/19 History acetaminophen [Tylenol Extra 1,000 mg PO Q8 PRN 10/27/19 11/06/19 History Strength] lisinopril-hydrochlorothiazide 1 tab PO QAM 10/27/19 11/06/19 History meloxicam 15 mg PO QAM 11/02/19 11/06/19 History omeprazole 40 mg PO QAM 11/02/19 11/06/19 History Past Med/Surg History Medical History Enlarged prostate without lower urinary tract symptoms (luts) (Acute) GERD (gastroesophageal reflux disease) (Acute) Hypercholesterolemia (Acute) Hypertension (Acute) Obstructive sleep apnea (Acute) CPAP Osteoarthritis Surgical History Cornea transplant recipient RT/LEFT History of appendectomy History of arthroscopy LEFT KNEE History of cataract surgery RT/LEFT History of cholecystectomy History of colonoscopy History of prostate surgery TUNA PROCEDURE History of tooth extraction Hx of hemorrhoidectomy Family History Mother Myocardial infarction Grandfather (Maternal) Myocardial infarction Grandmother (Maternal) Diabetes Other Family history of ischemic heart disease before age 50 Denies family history of Colon cancer Ovarian cancer Prostate cancer Breast cancer Social History Preferred Language: Trinidadian Communication Ability: Effective Visual Impairment: No Limitations Hearing Ability: Normal [employer] President Required: No Beliefs That Will Affect Care: None marital status: Current Living Situation: Spouse current occupational status: retired Feels Safe at Home: Yes Smoking Status: Former smoker Second Hand Exposure: No ; Hx Alcohol Use: Yes Alcohol type: beer Alcohol Intake Frequency: Rarely Hx Substance Use: No Dental Care, Regularly: Yes Physical Activity Frequency: 1-2 Times per Week Seatbelt Use: always Sunscreen Use: No Review of Systems Review of Systems: All systems reviewed & are unremarkable except as noted in HPI & below Physical Exam Physical Exam: gen aaox3 pleasant nad heent nc at mmm no subungal icterus or pallor. no conjunctival pallor. no exudate. EOMI. neck full ROM cardio reg HR no irregularity or ectopy. normal PMI lungs - unlabored no accessory muscles good effort, no crepitis (except question extremely faint on L side but doubtful of signficance) no dullness to percussion, no rib asymmetry abd soft nd nt no masses or organomegaly. no rigidity. ext - no c/c/e no calf tenderness skin no rashes no pallor or icterus neuro - cn 2-12 grossly intact gross motor/sensory intact msk - no rib asymmetry noted no gross deformities no lesions mental - good recent and remote recall normal mood and affect good judgement and insight. Results & Data Vital Signs (Past 12 Hours) Vital Signs Temp Pulse Pulse Resp BP BP Pulse Ox 11/06/19 14:51 80 18 116/75 97 11/06/19 13:00 95 11/06/19 12:50 70 16 125/75 11/06/19 12:03 98.1 F 107 H 20 114/74 97 PG Care Time/CCT Total # of Minutes Spent Total Time Spent with Patient: Total time spent is greater than 50% in coordination of care (as documented) at patient's floor/unit and/or counseling patient: Coding Level of Care Code 77854 OBS Care - Level 3 Diagnoses Diarrhea R19.7 Leukocytosis D72.829 Leukocytosis type: unspecified Night sweats R61 Fever of unknown origin R50.9 Hypertension I10 Obstructive sleep apnea G47.33 DVT prophylaxis Z29.9 Discharge planning issues Z02.9 (1) Leukocytosis Leukocytosis type: unspecified Qualified Code(s): D72.829 - Elevated white blood cell count, unspecified
[2019-11-06] MEDS ORDERED: MAGNESIUM HYDROXIDE SUSP 30 ML UDC PO PRN (18:37)
[2019-11-06] MEDS ORDERED: CPAP MACHINE SCH (18:37)
[2019-11-06] MEDS ORDERED: ONDANSETRON INJ 2 MG/ML 2 ML VIAL IV PRN (18:37)
[2019-11-06] MEDS ORDERED: ALUMINUM/MAGNESIUM SUSP 30 ML UDC PO PRN (18:37)
[2019-11-06] MEDS: FAMOTIDINE 20 MG TAB PO SCH (20:07)
[2019-11-06] MEDS ORDERED: PRAVASTATIN SOD 10 MG TAB PO SCH (21:00)
[2019-11-07 06:28] LABS: Basophils # (auto) 0.07 K/uL (0-0.2); Basophils % (auto) 0.3 %; Eosinophils % (auto) 2.8 %; Hematocrit (blood only) 34.2 % (42-52); Hemoglobin 11.3 g/dL (14.0-18.0); Immature Granulocytes # (auto) 0.34 K/uL (0.00-0.02); Immature Granulocytes % (auto) 1.6 %; Lymphocytes % (auto) 9.8 %; Mean Corpuscular Hemoglobin 27.2 pg (25-34); Mean Corpuscular Volume 82.4 fL (80-100); Mean Platelet Volume 8.9 fL (7.4-10.4); Monocytes # (auto) 1.65 K/uL (0.11-0.59); Monocytes % (auto) 7.7 %; Neutrophils # (auto) 16.61 K/uL (1.4-6.5); Neutrophils % (auto) 77.8 %; Platelet Count 553 K/uL (130-400); RDW Coefficient of Variation 15.1 % (11.5-14.5); RDW Standard Deviation 45.6 fL (36.4-46.3); Red Blood Count 4.15 M/uL (4.7-6.1); White Blood Count 21.37 K/uL (4.8-10.8)
[2019-11-07 06:55] LABS: Calcium 8.4 mg/dl (8.5-10.1); Creatinine Clr Calc Pharmacy 102.6 ml/min; Est GFR (African American) 106.9; Est GFR (Non-African American) 92.3
[2019-11-07 06:57] LABS: Albumin Globulin Ratio 0.4 (0.9-2); Bilirubin,Total 0.5 mg/dl (0.2-1); Globulin 5.1 gm/dl (2.5-4.0); Total Protein 7.1 gm/dl (6.4-8.2)
[2019-11-07] MEDS: FAMOTIDINE 20 MG TAB PO SCH (07:59)
[2019-11-07] MEDS ORDERED: LISINOPRIL/HCTZ 10/12.5MG TAB PO SCH (09:00)
[2019-11-07] MEDS ORDERED: MULTIVITAMIN TAB PO SCH (09:00)
[2019-11-07] MEDS ORDERED: PANTOprazole 40 MG TAB PO SCH (09:00)
--- NOTE | 2019-11-07 15:02 | Discharge Summary ---
Date of Service November 07, 2019 Admission HPI Per Admitting Provider went home saturday, lower temp - 99.9, night sweats saturday night. 99.6 and sweats. temps were coming down, generally feeling better. appetite was improving. loose BM yesterday but not black. this AM ~6 episodes black and lumpy diarrhea and crampy abdominal pain only at the time of the diarrhea but not really any other abdominal pain. no abdominal pain now. no epigastric pain/nausea/vomiting. ate oatmeal this AM nothing since but not due to pain/nausea/etc just due to coming to ER and then being here. had called office and when they talked black stools they told him to come to ER. no new f/c/s. just the above noted pattern of slowly resolving night fevers and sweats appetite had improved some - not normal yet but better chronic L leg pain/paresthesia but nothing new/different than it's been for years no sob cp or cough (although does have one short cough while i'm in the room) still not sick Principal Diagnosis diarrhea - viral vs abx associated (non Cdiff) Discharge Exam gen aao pleasant nad heent nc at mmm breathing unlabored no accessory muscles skin no rashes no pallor or icterus no focal neuro deficits Discharge Data Allergies Allergy/AdvReac Type Severity Reaction Status Date / Time No Known Allergies Allergy Verified 11/06/19 13:53 Consultations 11/06/19 15:33 ED Decision to Admit Stat Hospital Course (1) Diarrhea: with dark black initial concern was for GI bleed - but given diarrhea has stopped, blood counts stable, no tachycardia no hypotension - highly doubtful. further no epigastric pain/tenderness/nausea/vomiting and just had colo in july; diarrhea stopped and overall stable, so situation not entirely clear as far as heme positive stools but nonspecific and no worry findings -- stable for home, clinically did not at all appear c/w GI bleed with recent abx and hospital stay concern for Cdiff - but fortunately diarrhea resolved and when stool was sent was actually formed. not Cdiff biggest ddx is abx associated (non Cdiff) vs secondary to a different/new viral illness --supporting abx associated - he appears nontoxic, had loose stools yesterday as well that progressed some, had been on cipro a week prior and (while for only a short time) was on zosyn during 11/01-11/03 stay --supporting viral is elevation of LFT (although zosyn can do this too) and multiple viral etiologies being present in the community ----> diarrhea resolved, labs were stable, he felt better. stable for home. ongoing outpt f/u as before but add CMP to labs until LFTs normalize. (2) Leukocytosis: suspect long drawn out viral course - see 11/01-11/03 visit. fortunately nothing about his current presentation changes that ddx by much, other than if his white count today is artifically up due to diarrhea (3) Night sweats: see above (4) Fever of unknown origin: see above, follow temp curve -seems to be showing day-to-day ipmrovement *of note, pt does have pending COVID19 testing, clinically low suspicion given lack of significant respiratory symptoms as well as given that his overall course of illness started before many (?any) known cases in [place], as well as that his has been with him for weeks and she has not been ill. (5) Hypertension: home meds (6) Obstructive sleep apnea: CPAP (7) DVT prophylaxis: SCDs, ambulation (8) Discharge planning issues: home, self isolation pending results of COVID19 PCR, fecal/oral pre cautions given diarrhea. outpt f/u starting w labs on saturday, f/u sooner prn Total Time Total Time Spent Total Time Spent (In Minutes): >30 Discharge Plan Discharge Items Patient Disposition: Home - Self-Care Reason For Visit: DIARRHEA Discharge Diagnosis: Diarrhea Condition on Discharge: Good Activity: Resume your previous activity Non-emergency contact: Primary Care Provider Call non-emergency contact if: you have any medication questions and you have a fever Follow-up/Referrals: Pro,Alexis Dan MD [Primary Care Provider] - Diet: Regular Addtl Attending Provider Instructions: diarrhea and elevated liver enzymes -as we discussed, the two (equally likely, nearly impossible to distinguish) possibilities that caused your diarrhea and slight bump in liver enzymes were either a separate stomach virus OR a side effect to the antibiotic (zosyn) you were briefly on at the beginning of the week when your blood cultures were still "cooking" -either one just gets better with time; and since the diarrhea has already resolved, it appears that you're on the road to improvement -with the stool being black, your initial concern on bleeding was quite reasonable - but fortunately your blood counts have overall been stable (technically a little lower but: (A) within the "margin of error" for a hemoglobin lab value and (B) since you had a recent colonoscopy without any ominous findings AND you have no symptoms of "upper GI" (stomach) bleeding (nausea/upper stomach pain/pain after eating/vomiting/bloody vomit/stomach pain when pushing right under your breastbone) it's exceedingly unlikely that there's any real bleeding, or if there is, it's highly unlikely to be of any true signi ficance. as they follow your white blood cells back to normal each saturday, your blood counts are also part of the same panel, so they'll be followed as well. of course, if you were to see a real uptick in the black stool or if you were to show new symptoms of anemia (weak/lightheaded/dizzy when standing/feeling like you're going to black out/short of breath with exertion/looking really pale) we'd want you to get checked out right away, but in the context of what we are and are not seeing with you, that's all highly unlikely -we'll also ask when they check labs on saturday that they repeat liver enzymes (with a lab test called CMP, or complete metabolic panel) -- i'd expect your liver enzymes to return to normal in the next 1-2 weeks, so we'll probably not need to follow that as long as the blood counts contagiousness/risk to yourself or others -as we discussed, this is really two different questions: (a) how much risk am I to getting other people sick, and (b) how much am I at risk from getting sick from other people risk to others: technically while your COVID19 test is still pending (?hopefully back early this coming week) we have to have you act as though you could spread this infection. in that respect you should have strict isolation from others, assume that your spit and snot are full of virus (and therefore every time you cough/sneeze or touch your face/nose/mouth you could spray germs or get them on your hands and then spread them to others) -- but as we discussed, this is pretty unlikely given that your symptoms really don't fit with what's been reported with COVID. because of the current situation in the [place], it's simply better to isolate as above until the test is negative, however. -the main risk to others is really with the diarrhea -- if this was a stomach bug, stomach bugs are very contagious, mostly spread through the stool. so in that respect, assume for the next week that any time you have a bowel movement, there could easily be viral particles all through the bathroom -- so just wipe down the toilet seat/handle and sink/doorknob with a clorox wipe and wash your hands thoroughly. risk to yourself: while you're an overall young and healthy 69, over 70 is where people seem to have risk of getting sicker with what's going around. more than your age, however, is the idea of "reserve" -- ie your body's ability to fight off something. when a person has been hit with something that "knocks them down" (commonly if someone has a pneumonia, or even a major elective surgery) they'll be more susceptible to getting sick with other things for a while (sometimes a few months, even) -- so given that you've been pretty sick with this overall course of illness, and in spite of the fact that we expect it to get better over time, we'll have to assume that for right now you'd be easier to get sick with other things. in that respect, you would definitely want to use common-sense in applying the precautions recommended for everyone right now -- avoiding other people at about a 6 foot radius, assuming if you touched anything that someone else touched (doorknob, shopping cart, self-checkout register, etc) that it could have put some germs on your hands -- so use caution in that respect and wash hands/hand sanitize frequently. next steps: -home, take it easy, gradual return to regular activity -call if "alarm symptoms" like outlined above -while you can take the tylenol as needed for fever or pain, try to refrain from taking more than 2000mg in a day as it can cause liver inflammation too; if you don't need any don't take any -continue to follow the pattern of your fevers and sweats like we wrote out saturday -CBC, CMP this coming saturday take care! Pending Studies at Discharge: No Stand-Alone Forms: My [facility], Smoking Cessation Medications and DC Order Prescriptions: Continued multivitamin tablet 1 tab PO QAM RF: 0 famotidine 20 mg tablet 20 mg PO BID 42 Days Qty: 84 RF: 0 (DME) CPAP Machine Misc See Rx Instructions .ROUTE .MEDSUPPLY Qty: 1 RF: 0 pravastatin 10 mg tablet 10 mg PO HS RF: 0 acetaminophen [Tylenol Extra Strength] 500 mg Tablet 1,000 mg PO Q8 PRN (Reason: Fever Or Pain) Qty: 0 RF: 0 Unknown Eye Drop 1 drp OPB QAM RF: 0 lisinopril-hydrochlorothiazide 10-12.5 mg tablet 1 tab PO QAM RF: 0 meloxicam 15 mg tablet 15 mg PO QAM RF: 0 omeprazole 40 mg capsule,delayed release(DR/EC) 40 mg PO QAM RF: 0 Discharge Orders: Discharge Order (Routine); Ordered 11/07/19 Ordered By: Jourdan Rodriges Admission Data Admit Date/Time: 11/06/19 17:06 Attending Provider: Jourdan Rodriges Admit Provider: Jourdan Rodriges Primary Care Provider: Alexis Lang Other Providers: Jourdan Rodriges Other Interventions: Discharge Summary Assessment (RN) Last Done: 11/07/19 09:54 DC Date/Time DO NOT enter until pt leaves facility: 11/07/19 10:29 Coding Level of Care Code D/C Day Management >30 mins Diagnoses Diarrhea R19.7 Leukocytosis D72.829 Leukocytosis type: unspecified Night sweats R61 Fever of unknown origin R50.9 Hypertension I10 Obstructive sleep apnea G47.33 DVT prophylaxis Z29.9 Discharge planning issues Z02.9
== END 2019-11-07 10:29 | disposition home or self-care (01) ==
LOC: 2W 11:56 → ED 11:56 → 2W 18:06